=== PATIENT | female | born 1935 | race Caucasian/White ===

== ENCOUNTER 2019-09-27 07:41 | Inpatient (IN) ==
[2019-09-27] MEDS ORDERED: LIDOCAINE 1% 20 ML VIAL SQ ONE (07:42)
[2019-09-27] MEDS ORDERED: IPRATROPIUM/ALBUTEROL 3 ML AMPUL.NEB NEB ONE (08:13)
--- NOTE | 2019-09-27 08:26 | Emergency Department Note ---
SOB HPI - General Chief Complaint: Shortness of Breath/Dyspnea Stated Complaint: rib pain, SOB Time Seen by Provider: 09/27/19 08:16 Source: patient, EMS Mode of arrival: EMS Limitations: no limitations - History of Present Illness 84 -year-old female presenting to the emergency department the chief complaint of shortness of breath progressing over the evening. On more detailed history patient has been having shortness of breath over at least 4 to 5 days. Patient has recently had amiodarone changed from 200-100. Patient also with slip and fall last night seen by EMS with low oxygen saturations in the 60s that were improved with a DuoNeb and position her back in bed. Patient is not really giving history of cough or fever she has had some cough but not really dramatic at this point time. Patient is noted to have past medical history significant for atrial fibrillation, CABG, HTN. Exacerbating factors are time ameliorating factors are DuoNeb's were helping initially. Time course is gradual and progressive. Pt is on Plavix, metoprolol, amiodarone - Related Data Home Medications Medication Instructions Recorded Confirmed Calcium Citrate/Vitamin D3 1 tab PO DAILY 07/06/19 09/27/19 [Calcium Citrate - Vit D Tablet] Chromium Picolinate 1,000 mcg PO DAILY@1200 07/06/19 09/27/19 Ferrous Sulfate 325 mg PO BID 07/06/19 09/27/19 Fish Oil/Dha/Epa [Fish Oil 1,200 1 cap PO DAILY@1200 07/06/19 09/27/19 mg Fish Oil] Hydrochlorothiazide [Oretic] 12.5 mg PO DAILY 07/06/19 07/20/19 Levothyroxine [Synthroid] 100 mcg PO ACB 07/06/19 09/27/19 Magnesium Oxide [Magnesium] 400 mg PO DAILY@1200 07/06/19 09/27/19 Multivit-Min/FA/Lycopen/Lutein 1 tab PO DAILY@1200 07/06/19 09/27/19 [Centrum Silver Tablet] Potassium Gluconate 99 mg PO DAILY@1200 07/06/19 09/27/19 Ubidecarenone [Coq-10] 100 mg PO DAILY@1200 07/06/19 09/27/19 Vitamin D3 400 unit PO DAILY@1200 07/06/19 09/27/19 Vitamin E (Dl,Tocopheryl Acet) 400 unit PO DAILY@1200 07/06/19 09/27/19 [Vitamin E] Cannabidiol (Cbd) Extract 0.0625 appful PO Q4HP PRN 07/20/19 09/27/19 [Epidiolex] Amiodarone HCl [Pacerone] 100 mg PO DAILY 09/27/19 09/27/19 Atorvastatin [Lipitor] 40 mg PO DAILY 09/27/19 09/27/19 Clopidogrel Bisulfate 75 mg PO DAILY 09/27/19 09/27/19 Furosemide [Lasix] 20 mg PO DAILY 09/27/19 09/27/19 Losartan Potassium 25 mg PO DAILY 09/27/19 09/27/19 Metoprolol Tartrate [Lopressor] 25 mg PO DAILY 09/27/19 09/27/19 Potassium Chloride [Kdur] 10 meq PO DAILY 09/27/19 09/27/19 guaiFENesin [Mucinex] 1,200 mg PO DAILY 09/27/19 09/27/19 Previous Rx's Medication Instructions Recorded oxyCODONE/APAP [Percocet 5-325 mg] 5 - 10 mg PO Q4HP PRN #60 tab 07/18/19 Allergies Allergy/AdvReac Type Severity Reaction Status Date / Time naproxen Allergy Mild Hives Verified 09/27/19 07:48 morphine AdvReac Mild Itching Verified 09/27/19 07:48 Review of Systems All systems ED: reviewed and negative except as stated. Past Medical History - Past Medical History [facility] Narrative: All Active Problems Acute coronary syndrome with high troponin (Acute) Medical history: Reports: hypertension, hypothyroidism, obesity Psychiatric history: Reports: no psych history Surgical history ED: Reports: knee replacement (right) - Social History smoking status: Former smoker Alcohol use: Reports: None Drug use: Reports: none Physical Exam Vital signs evaluated and pt is noted to be hypoxic and tachycardic General: Alert, interactive, appropriate Head: Atraumatic, normocephalic Eyes: Extraocular movements intact, PERRLA Neck: Trachea midline, full range of motion Chest: Symmetrical chest wall rise, diffuse coarse breath sounds, poor air movement, tachypnea Cardiovascular: Patient with excellent perfusion to the extremities, irregularly irregular, tachycardic Abdomen: Nontender nondistended normoactive bowel sounds no masses no hepatosplenomegaly no rebound no guarding Extremities: Full range of motion joints, warm well perfused Neuro: Alert, oriented x3, cranial nerves II through XII grossly intact, normal gait Psychiatric: Normal affect normal mood Limitations: no limitations Course Vital Signs Temperature 98.9 F 09/27/19 07:41 Pulse Rate 126 H 09/27/19 07:41 Respiratory Rate 30 H 09/27/19 07:41 Blood Pressure 150/75 09/27/19 07:41 Pulse Oximetry (%) 86 L 09/27/19 07:41 Temperature 98.9 F 09/27/19 07:41 Pulse Rate 126 H 09/27/19 07:41 Respiratory Rate 28 H 09/27/19 08:28 Blood Pressure 145/80 09/27/19 08:08 Pulse Oximetry (%) 86 L 09/27/19 07:41 Shortness of Breath/Dyspnea - MDM Narrative Medical decision making narrative: After review of chart and patient history/physical exam as well as the CXR that is available labs as well as additional imaging CT chest are obtained. The differential diagnosis includes acute hypoxic respiratory failure, COPD exacerbation, pneumonia, sepsis, pulmonary edema, pneumothorax, metabolic acidosis, acute respiratory distress syndrome, panic attack, airflow obstruction, restrictive lung disease, aspiration, congestive heart failure, hypercapnia, influenza, bronchitis, upper respiratory infection, pulmonary embolism, cardiac tamponade, valvular obstruction, IN/ACS, and arrhythmia. In my medical opinion this patient has dyspnea that reasonably does require admission to the hospital. Pt seen at time of shift change and oncoming physician is advi sed of findings and assumes care. - Lab Data Result diagrams: 09/27/19 07:56 09/27/19 07:56 - EKG Data EKG attestation: Yes I reviewed and interpreted this EKG. EKG results narrative: EKG: Rate: 131, TN: n/a, rhythm: atrial fibrillation RVR, patient without ST elevations to suggest STEMI, patient without concerning T wave inversions or other findings to suggest NSTEMI Disposition Pt seen by MANAGER RENTAL/PA only: No Clinical Impression: Hypoxia, Atrial fibrillation with RVR, Acute and chronic respiratory failure with hypoxia Disposition: Still a Patient Condition: Fair Referrals: Homa Payton MD [Primary Care Provider] -
--- NOTE | 2019-09-27 08:34 | XRay Report ---
INDICATION: Dyspnea TECHNIQUE: AP chest x-ray,portable semiupright COMPARISON: Previous chest x-rays dated 08/02/2019, 08/01/2019 FINDINGS:Previous median sternotomy. There are surgical clips in the right axilla. There is cardiomegaly. Pulmonary vascularity is prominent. There are bilateral, bibasilar infiltrates and bilateral pleural effusions. Left pleural effusion appears larger than the right. Findings are most consistent with congestive heart failure. Bibasilar pneumonia is possible. IMPRESSION: 1. Findings consistent with congestive heart failure 2. Bibasilar pneumonia is possible Interpreted and Authenticated by: Freddie Mcdermott 09/27/19
[2019-09-27 08:44] LABS: Basophils # (Auto) 0 K/mcL (0.0-0.3); Basophils % (Auto) 0.2 % (0.0-2.0); Eosinophils # (Auto) 0 K/mcL (0.0-0.7); Eosinophils % (Auto) 0 % (0.0-7.0); Granulocytes % (Auto) 70.4 % (38.0-78.0); Hematocrit 34.5 % (36.0-48.0); Hemoglobin 11.3 g/dL (12.0-15.0); Lymphocytes # (Auto) 1.1 K/mcL (1.5-4.8); Lymphocytes % (Auto) 14.1 % (15.5-49.0); Mean Cell Volume 90.3 fL (80.0-100.0); Mean Corpuscular HGB Conc 32.8 g/dL (31.0-36.0); Mean Platelet Volume 7.4 fL (7.4-10.4); Monocytes # (Auto) 1.2 K/mcL (0.1-0.9); Monocytes % (Auto) 15.3 % (1.0-12.0); Platelet Count 189 K/mcL (140-440); RBC 3.82 M/mcL (4.00-5.20); Red Cell Distribution Width 20.1 % (11.5-14.5); WBC 7.9 K/mcL (4.5-11.0)
[2019-09-27 09:15] LABS: ALT/SGPT 15 U/l (0-40); AST/SGOT 17 U/l (0-37); Albumin 4.4 gm/dL (3.2-5.2); Albumin/Globulin Ratio 1.6 (1.0-2.3); Alkaline Phosphatase 91 U/L (39-117); Bilirubin,Total 1.2 mg/dL (0.0-1.0); Blood Urea Nitrogen 19 mg/dl (8-23); Calcium 10.1 mg/dl (8.6-10.4); Carbon Dioxide 30 mmol/L (22-30); Chloride 95 mmol/L (96-108); Globulin 2.8 gm/dL (2.2-3.7); Glomerular Filtration Rate 69; Glucose 114 mg/dL (70-105)
--- NOTE | 2019-09-27 09:43 | Cat Scan Report ---
CLINICAL INFORMATION: History of coronary artery bypass procedure. Dyspnea. TECHNIQUE: Axial postcontrast enhanced images of the chest. Sagittal and coronal reformatted images. Axial MIP reformatted images COMPARISON: Previous chest x-ray dated 09/27/2019 FINDINGS: Previous median sternotomy. There is severe coronary artery calcification. Probable previous coronary artery bypass procedure. There is cardiomegaly. There is no pericardial effusion. There are bilateral pleural effusions, right larger than left. There is bilateral lower lobe parenchymal density most consistent with volume loss. Chest x-ray demonstrated prominent vascularity and probable interstitial pulmonary edema. Appearance is most consistent with congestive heart failure. Bilateral lower lobe pneumonia is not excluded based only upon the radiographic images. No pathologic hilar or mediastinal adenopathy. No axillary adenopathy. Upper abdomen is negative. Multilevel degenerative disc disease in the thoracic spine. No rib fracture. No lytic lesion. IMPRESSION: 1. Previous median sternotomy and probable coronary artery bypass procedure 2. Severe calcified coronary artery disease. Mild cardiomegaly 3. Bilateral pleural effusions, right larger than left. Bilateral lower lobe volume loss. Appearance is consistent with congestive heart failure Interpreted and Authenticated by: Freddie Mcdermott 09/27/19
[2019-09-27 09:46] LABS: Appearance,Urine CLOUDY; Bacteria,Urine MOD /hpf (0); Bilirubin,Urine NEG (NEG); Color,Urine STRAW; Culture Indicated,Urine NO; Glucose,Urine (UA) NEGATIVE (NEG); Ketones,Urine NEG (NEG); Leukocyte Esterase,Urine NEG /uL (NEG); Mucus,Urine MANY /hpf (0); Nitrate,Urine NEG (NEG); Other Casts,Urine MANY /lpf (0); Protein,Urine 30 mg/dL (NEG); Specific Gravity,Urine 1.023 (1.000-1.035); Urine Blood NEG mg/dL (<0.03); Urine Hyaline Cast 38 /lpf (0-2); Urine RBC 1 /hpf (0-1); Urine Squamous Epithelial Cell 29 /hpf (0-4); Urine WBC 9 /hpf (0-4)
[2019-09-27] MEDS ORDERED: FUROSEMIDE 100 MG/10 ML VIAL IV ONE (10:19)
[2019-09-27] MEDS ORDERED: METOPROLOL TARTRATE 50 MG TABLET PO ONE (10:24)
--- NOTE | 2019-09-27 10:28 | Emergency Department Note ---
SOB HPI - General Chief Complaint: Shortness of Breath/Dyspnea Stated Complaint: rib pain, SOB Time Seen by Provider: 09/27/19 08:16 Source: patient, EMS Mode of arrival: EMS Limitations: no limitations - History of Present Illness 84-year-old female comes in with shortness of breath and hypoxia requiring now 5 L of oxygen. She is not on oxygen at home. Patient was initially seen by Dr. Griffin. I reviewed his note. I assume full care at shift change - Related Data Home Medications Medication Instructions Recorded Confirmed Calcium Citrate/Vitamin D3 1 tab PO DAILY 07/06/19 09/27/19 [Calcium Citrate - Vit D Tablet] Chromium Picolinate 1,000 mcg PO DAILY@1200 07/06/19 09/27/19 Ferrous Sulfate 325 mg PO BID 07/06/19 09/27/19 Fish Oil/Dha/Epa [Fish Oil 1,200 1 cap PO DAILY@1200 07/06/19 09/27/19 mg Fish Oil] Levothyroxine [Synthroid] 100 mcg PO ACB 07/06/19 09/27/19 Magnesium Oxide [Magnesium] 400 mg PO DAILY@1200 07/06/19 09/27/19 Multivit-Min/FA/Lycopen/Lutein 1 tab PO DAILY@1200 07/06/19 09/27/19 [Centrum Silver Tablet] Potassium Gluconate 99 mg PO DAILY@1200 07/06/19 09/27/19 Ubidecarenone [Coq-10] 100 mg PO DAILY@1200 07/06/19 09/27/19 Vitamin D3 400 unit PO DAILY@1200 07/06/19 09/27/19 Vitamin E (Dl,Tocopheryl Acet) 400 unit PO DAILY@1200 07/06/19 09/27/19 [Vitamin E] Cannabidiol (Cbd) Extract 0.0625 appful PO Q4HP PRN 07/20/19 09/27/19 [Epidiolex] Amiodarone HCl [Pacerone] 100 mg PO DAILY 09/27/19 09/27/19 Atorvastatin [Lipitor] 40 mg PO DAILY 09/27/19 09/27/19 Clopidogrel Bisulfate 75 mg PO DAILY 09/27/19 09/27/19 Furosemide [Lasix] 20 mg PO DAILY 09/27/19 09/27/19 Losartan Potassium 25 mg PO DAILY 09/27/19 09/27/19 Metoprolol Tartrate [Lopressor] 25 mg PO DAILY 09/27/19 09/27/19 Potassium Chloride [Kdur] 10 meq PO DAILY 09/27/19 09/27/19 guaiFENesin [Mucinex] 1,200 mg PO DAILY 09/27/19 09/27/19 Allergies Allergy/AdvReac Type Severity Reaction Status Date / Time naproxen Allergy Mild Hives Verified 09/27/19 14:58 morphine AdvReac Mild Itching Verified 09/27/19 14:58 Past Medical History - Past Medical History Medical history: Reports: hypertension, hypothyroidism, obesity Psychiatric history: Reports: no psych history Surgical history ED: Reports: knee replacement (right) - Social History smoking status: Former smoker Alcohol use: Reports: None Drug use: Reports: none Physical Exam Limitations: no limitations Course Vital Signs Temperature 98.9 F 09/27/19 07:41 Pulse Rate 126 H 09/27/19 07:41 Respiratory Rate 30 H 09/27/19 07:41 Blood Pressure 150/75 09/27/19 07:41 Pulse Oximetry (%) 86 L 09/27/19 07:41 Temperature 98.0 F 09/28/19 05:54 Pulse Rate 69 09/27/19 13:00 Respiratory Rate 19 09/28/19 05:54 Blood Pressure 109/52 09/28/19 05:01 Pulse Oximetry (%) 97 09/28/19 05:54 Shortness of Breath/Dyspnea - Lab Data Lab results reviewed: Yes I reviewed the patient's lab results. Result diagrams: 09/28/19 04:00 09/28/19 04:00 Lab Results 09/27/19 09/27/19 09/27/19 Range/Units 07:56 07:56 07:56 WBC 7.9 (4.5-11.0) K/mcL RBC 3.82 L (4.00-5.20) M/mcL Hgb 11.3 L (12.0-15.0) g/dL Hct 34.5 L (36.0-48.0) % MCV 90.3 (80.0-100.0) fL MCH 29.6 (26.0-34.0) pg MCHC 32.8 (31.0-36.0) g/dL RDW 20.1 H (11.5-14.5) % Plt Count 189 (140-440) K/mcL MPV 7.4 (7.4-10.4) fL Gran % 70.4 (38.0-78.0) % Lymph % (Auto) 14.1 L (15.5-49.0) % [place] % (Auto) 15.3 H (1.0-12.0) % Eos % (Auto) 0 (0.0-7.0) % Baso % (Auto) 0.2 (0.0-2.0) % Gran # 5.6 (1.8-8.0) K/mcL Lymph # (Auto) 1.1 L (1.5-4.8) K/mcL [place] # (Auto) 1.2 H (0.1-0.9) K/mcL Eos # (Auto) 0 (0.0-0.7) K/mcL Baso # (Auto) 0 (0.0-0.3) K/mcL PT (11.9-14.5) sec INR (0.9-1.1) VBG Lactic Acid (0.5-2.0) mmol/L Sodium 136 (133-145) mmol/L Potassium 4.3 (3.3-5.1) mmol/L Chloride 95 L (96-108) mmol/L Carbon Dioxide 30 (22-30) mmol/L Anion Gap 11.0 (8-16) BUN 19 (8-23) mg/dl Creatinine 0.8 (0.6-1.1) mg/dl GFR Calculation 69 Glucose 114 H (70-105) mg/dL Calcium 10.1 (8.6-10.4) mg/dl Total Bilirubin 1.2 H (0.0-1.0) mg/dL AST 17 (0-37) U/l ALT 15 (0-40) U/l Alkaline Phosphatase 91 (39-117) U/L Lactate Dehydrogenase (94-250) U/L Troponin T < 0.01 (0-0.03) ng/ml NT-Pro-B Natriuret Pep (0-450) pg/ml Total Protein 7.2 (5.9-8.4) gm/dL Albumin 4.4 (3.2-5.2) gm/dL Globulin 2.8 (2.2-3.7) gm/dL Albumin/Globulin Ratio 1.6 (1.0-2.3) Cholesterol (<200) mg/dl TSH (0.27-5.01) uIU/ml Urine Color Urine Appearance Urine pH (5.0-9.0) Ur Specific [place] (1.000-1.035) Urine Protein (NEG) mg/dL Urine Glucose (UA) (NEG) mg/dL Urine Ketones (NEG) mg/dL Urine Occult Blood (<0.03) mg/dL Urine Nitrate (NEG) Urine Bilirubin (NEG) mg/dL Urine Urobilinogen (NEG) mg/dL Ur Leukocyte Esterase (NEG) /uL Urine RBC (0-1) /hpf Urine WBC (0-4) /hpf Ur Squamous Epith Cells (0-4) /hpf Urine Bacteria (0) /hpf Hyaline Casts (0-2) /lpf Other Casts (0) /lpf Urine Mucus (0) /hpf Ur Culture Indicated? Fluid pH Fluid Total Protein Fluid LDH Fluid Cholesterol mg/dL Fluid Triglycerides mg/dL Pleural Fluid Source Pleural Color Pleural Appearance Pleural RBC /cumm Pleural Hematocrit % Pleural Tot Cell Ct Pleural Nuc Cells /cumm Pleural Neutrophils % Pleural Lymphocytes % Pleural Monocytes % Pleural Plasma Cells Pleural Macrophages % Pleural Mesothelial % Pleural Diff Comment Pleural Glucose mg/dL Pleural Amylase U/L 09/27/19 09/27/19 09/27/19 Range/Units 07:56 07:56 09:07 WBC (4.5-11.0) K/mcL RBC (4.00-5.20) M/mcL Hgb (12.0-15.0) g/dL Hct (36.0-48.0) % MCV (80.0-100.0) fL MCH (26.0-34.0) pg MCHC (31.0-36.0) g/dL RDW (11.5-14.5) % Plt Count (140-440) K/mcL MPV (7.4-10.4) fL Gran % (38.0-78.0) % Lymph % (Auto) (15.5-49.0) % [place] % (Auto) (1.0-12.0) % Eos % (Auto) (0.0-7.0) % Baso % (Auto) (0.0-2.0) % Gran # (1.8-8.0) K/mcL Lymph # (Auto) (1.5-4.8) K/mcL [place] # (Auto) (0.1-0.9) K/mcL Eos # (Auto) (0.0-0.7) K/mcL Baso # (Auto) (0.0-0.3) K/mcL PT (11.9-14.5) sec INR (0.9-1.1) VBG Lactic Acid (0.5-2.0) mmol/L Sodium (133-145) mmol/L Potassium (3.3-5.1) mmol/L Chloride (96-108) mmol/L Carbon Dioxide (22-30) mmol/L Anion Gap (8-16) BUN (8-23) mg/dl Creatinine (0.6-1.1) mg/dl GFR Calculation Glucose (70-105) mg/dL Calcium (8.6-10.4) mg/dl Total Bilirubin (0.0-1.0) mg/dL AST (0-37) U/l ALT (0-40) U/l Alkaline Phosphatase (39-117) U/L Lactate Dehydrogenase (94-250) U/L Troponin T (0-0.03) ng/ml NT-Pro-B Natriuret Pep 942.9 H (0-450) pg/ml Total Protein (5.9-8.4) gm/dL Albumin (3.2-5.2) gm/dL Globulin (2.2-3.7) gm/dL Albumin/Globulin Ratio (1.0-2.3) Cholesterol (<200) mg/dl TSH 2.99 (0.27-5.01) uIU/ml Urine Color Straw Urine Appearance Cloudy Urine pH 5.0 (5.0-9.0) Ur Specific [place] 1.023 (1.000-1.035) Urine Protein 30 A (NEG) mg/dL Urine Glucose (UA) Negative (NEG) mg/dL Urine Ketones Neg (NEG) mg/dL Urine Occult Blood Neg (<0.03) mg/dL Urine Nitrate Neg (NEG) Urine Bilirubin Neg (NEG) mg/dL Urine Urobilinogen 2.0 A (NEG) mg/dL Ur Leukocyte Esterase Neg (NEG) /uL Urine RBC 1 (0-1) /hpf Urine WBC 9 H (0-4) /hpf Ur Squamous Epith Cells 29 H (0-4) /hpf Urine Bacteria Mod A (0) /hpf Hyaline Casts 38 H (0-2) /lpf Other Casts Many A (0) /lpf Urine Mucus Many A (0) /hpf Ur Culture Indicated? No Fluid pH Fluid Total Protein Fluid LDH Fluid Cholesterol mg/dL Fluid Triglycerides mg/dL Pleural Fluid Source Pleural Color Pleural Appearance Pleural RBC /cumm Pleural Hematocrit % Pleural Tot Cell Ct Pleural Nuc Cells /cumm Pleural Neutrophils % Pleural Lymphocytes % Pleural Monocytes % Pleural Plasma Cells Pleural Macrophages % Pleural Mesothelial % Pleural Diff Comment Pleural Glucose mg/dL Pleural Amylase U/L 09/27/19 09/27/19 09/27/19 Range/Units 09:22 09:31 09:31 WBC (4.5-11.0) K/mcL RBC (4.00-5.20) M/mcL Hgb (12.0-15.0) g/dL Hct (36.0-48.0) % MCV (80.0-100.0) fL MCH (26.0-34.0) pg MCHC (31.0-36.0) g/dL RDW (11.5-14.5) % Plt Count (140-440) K/mcL MPV (7.4-10.4) fL Gran % (38.0-78.0) % Lymph % (Auto) (15.5-49.0) % [place] % (Auto) (1.0-12.0) % Eos % (Auto) (0.0-7.0) % Baso % (Auto) (0.0-2.0) % Gran # (1.8-8.0) K/mcL Lymph # (Auto) (1.5-4.8) K/mcL [place] # (Auto) (0.1-0.9) K/mcL Eos # (Auto) (0.0-0.7) K/mcL Baso # (Auto) (0.0-0.3) K/mcL PT 14.3 (11.9-14.5) sec INR 1.1 (0.9-1.1) VBG Lactic Acid 1.1 (0.5-2.0) mmol/L Sodium (133-145) mmol/L Potassium (3.3-5.1) mmol/L Chloride (96-108) mmol/L Carbon Dioxide (22-30) mmol/L Anion Gap (8-16) BUN (8-23) mg/dl Creatinine (0.6-1.1) mg/dl GFR Calculation Glucose (70-105) mg/dL Calcium (8.6-10.4) mg/dl Total Bilirubin (0.0-1.0) mg/dL AST (0-37) U/l ALT (0-40) U/l Alkaline Phosphatase (39-117) U/L Lactate Dehydrogenase 173 (94-250) U/L Troponin T (0-0.03) ng/ml NT-Pro-B Natriuret Pep (0-450) pg/ml Total Protein 7.2 (5.9-8.4) gm/dL Albumin (3.2-5.2) gm/dL Globulin (2.2-3.7) gm/dL Albumin/Globulin Ratio (1.0-2.3) Cholesterol 123 (<200) mg/dl TSH (0.27-5.01) uIU/ml Urine Color Urine Appearance Urine pH (5.0-9.0) Ur Specific [place] (1.000-1.035) Urine Protein (NEG) mg/dL Urine Glucose (UA) (NEG) mg/dL Urine Ketones (NEG) mg/dL Urine Occult Blood (<0.03) mg/dL Urine Nitrate (NEG) Urine Bilirubin (NEG) mg/dL Urine Urobilinogen (NEG) mg/dL Ur Leukocyte Esterase (NEG) /uL Urine RBC (0-1) /hpf Urine WBC (0-4) /hpf Ur Squamous Epith Cells (0-4) /hpf Urine Bacteria (0) /hpf Hyaline Casts (0-2) /lpf Other Casts (0) /lpf Urine Mucus (0) /hpf Ur Culture Indicated? Fluid pH Fluid Total Protein Fluid LDH Fluid Cholesterol mg/dL Fluid Triglycerides mg/dL Pleural Fluid Source Pleural Color Pleural Appearance Pleural RBC /cumm Pleural Hematocrit % Pleural Tot Cell Ct Pleural Nuc Cells /cumm Pleural Neutrophils % Pleural Lymphocytes % Pleural Monocytes % Pleural Plasma Cells Pleural Macrophages % Pleural Mesothelial % Pleural Diff Comment Pleural Glucose mg/dL Pleural Amylase U/L 09/27/19 09/27/19 09/27/19 Range/Units 11:24 12:17 12:17 WBC (4.5-11.0) K/mcL RBC (4.00-5.20) M/mcL Hgb (12.0-15.0) g/dL Hct (36.0-48.0) % MCV (80.0-100.0) fL MCH (26.0-34.0) pg MCHC (31.0-36.0) g/dL RDW (11.5-14.5) % Plt Count (140-440) K/mcL MPV (7.4-10.4) fL Gran % (38.0-78.0) % Lymph % (Auto) (15.5-49.0) % [place] % (Auto) (1.0-12.0) % Eos % (Auto) (0.0-7.0) % Baso % (Auto) (0.0-2.0) % Gran # (1.8-8.0) K/mcL Lymph # (Auto) (1.5-4.8) K/mcL [place] # (Auto) (0.1-0.9) K/mcL Eos # (Auto) (0.0-0.7) K/mcL Baso # (Auto) (0.0-0.3) K/mcL PT (11.9-14.5) sec INR (0.9-1.1) VBG Lactic Acid (0.5-2.0) mmol/L Sodium (133-145) mmol/L Potassium (3.3-5.1) mmol/L Chloride (96-108) mmol/L Carbon Dioxide (22-30) mmol/L Anion Gap (8-16) BUN (8-23) mg/dl Creatinine (0.6-1.1) mg/dl GFR Calculation Glucose (70-105) mg/dL Calcium (8.6-10.4) mg/dl Total Bilirubin (0.0-1.0) mg/dL AST (0-37) U/l ALT (0-40) U/l Alkaline Phosphatase (39-117) U/L Lactate Dehydrogenase (94-250) U/L Troponin T (0-0.03) ng/ml NT-Pro-B Natriuret Pep (0-450) pg/ml Total Protein (5.9-8.4) gm/dL Albumin (3.2-5.2) gm/dL Globulin (2.2-3.7) gm/dL Albumin/Globulin Ratio (1.0-2.3) Cholesterol (<200) mg/dl TSH (0.27-5.01) uIU/ml Urine Color Yellow Urine Appearance Hazy Urine pH 5.0 (5.0-9.0) Ur Specific [place] 1.019 (1.000-1.035) Urine Protein 30 A (NEG) mg/dL Urine Glucose (UA) Negative (NEG) mg/dL Urine Ketones Neg (NEG) mg/dL Urine Occult Blood Neg (<0.03) mg/dL Urine Nitrate Neg (NEG) Urine Bilirubin Neg (NEG) mg/dL Urine Urobilinogen 2.0 A (NEG) mg/dL Ur Leukocyte Esterase Neg (NEG) /uL Urine RBC 0 (0-1) /hpf Urine WBC 5 H (0-4) /hpf Ur Squamous Epith Cells 1 (0-4) /hpf Urine Bacteria Few A (0) /hpf Hyaline Casts 42 H (0-2) /lpf Other Casts (0) /lpf Urine Mucus Many A (0) /hpf Ur Culture Indicated? Yes Fluid pH 7.38 Fluid Total Protein TNP Fluid LDH TNP Fluid Cholesterol 87 mg/dL Fluid Triglycerides 43 mg/dL Pleural Fluid Source Pleural Pleural Color Red Pleural Appearance Bloody Pleural RBC > 613900 /cumm Pleural Hematocrit % Pleural Tot Cell Ct 100 Pleural Nuc Cells 14337 /cumm Pleural Neutrophils 53 % Pleural Lymphocytes 16 % Pleural Monocytes 12 % Pleural Plasma Cells Not Reportable Pleural Macrophages 16 % Pleural Mesothelial 3 % Pleural Diff Comment Not Reportable Pleural Glucose 104 mg/dL Pleural Amylase 48 U/L 09/27/19 Range/Units 12:18 WBC (4.5-11.0) K/mcL RBC (4.00-5.20) M/mcL Hgb (12.0-15.0) g/dL Hct (36.0-48.0) % MCV (80.0-100.0) fL MCH (26.0-34.0) pg MCHC (31.0-36.0) g/dL RDW (11.5-14.5) % Plt Count (140-440) K/mcL MPV (7.4-10.4) fL Gran % (38.0-78.0) % Lymph % (Auto) (15.5-49.0) % [place] % (Auto) (1.0-12.0) % Eos % (Auto) (0.0-7.0) % Baso % (Auto) (0.0-2.0) % Gran # (1.8-8.0) K/mcL Lymph # (Auto) (1.5-4.8) K/mcL [place] # (Auto) (0.1-0.9) K/mcL Eos # (Auto) (0.0-0.7) K/mcL Baso # (Auto) (0.0-0.3) K/mcL PT (11.9-14.5) sec INR (0.9-1.1) VBG Lactic Acid (0.5-2.0) mmol/L Sodium (133-145) mmol/L Potassium (3.3-5.1) mmol/L Chloride (96-108) mmol/L Carbon Dioxide (22-30) mmol/L Anion Gap (8-16) BUN (8-23) mg/dl Creatinine (0.6-1.1) mg/dl GFR Calculation Glucose (70-105) mg/dL Calcium (8.6-10.4) mg/dl Total Bilirubin (0.0-1.0) mg/dL AST (0-37) U/l ALT (0-40) U/l Alkaline Phosphatase (39-117) U/L Lactate Dehydrogenase (94-250) U/L Troponin T (0-0.03) ng/ml NT-Pro-B Natriuret Pep (0-450) pg/ml Total Protein (5.9-8.4) gm/dL Albumin (3.2-5.2) gm/dL Globulin (2.2-3.7) gm/dL Albumin/Globulin Ratio (1.0-2.3) Cholesterol (<200) mg/dl TSH (0.27-5.01) uIU/ml Urine Color Urine Appearance Urine pH (5.0-9.0) Ur Specific [place] (1.000-1.035) Urine Protein (NEG) mg/dL Urine Glucose (UA) (NEG) mg/dL Urine Ketones (NEG) mg/dL Urine Occult Blood (<0.03) mg/dL Urine Nitrate (NEG) Urine Bilirubin (NEG) mg/dL Urine Urobilinogen (NEG) mg/dL Ur Leukocyte Esterase (NEG) /uL Urine RBC (0-1) /hpf Urine WBC (0-4) /hpf Ur Squamous Epith Cells (0-4) /hpf Urine Bacteria (0) /hpf Hyaline Casts (0-2) /lpf Other Casts (0) /lpf Urine Mucus (0) /hpf Ur Culture Indicated? Fluid pH Fluid Total Protein Fluid LDH Fluid Cholesterol mg/dL Fluid Triglycerides mg/dL Pleural Fluid Source Pleural Color Pleural Appearance Pleural RBC /cumm Pleural Hematocrit 17.0 % Pleural Tot Cell Ct Pleural Nuc Cells /cumm Pleural Neutrophils % Pleural Lymphocytes % Pleural Monocytes % Pleural Plasma Cells Pleural Macrophages % Pleural Mesothelial % Pleural Diff Comment Pleural Glucose mg/dL Pleural Amylase U/L Arterial blood gas shows pH 7.29 PCO2 75 PO2 of 60On 3 L nasal cannula - Radiology Data Radiology results reviewed: Yes I reviewed the patient's radiology results. Chest x-ray shows bilateral pleural effusions right worse than left. CT scan of the lungs shows bilateral pleural effusions consistent with CHF - EKG Data EKG attestation: Yes I reviewed and interpreted this EKG., Yes There are no EKG findings of acute coronary syndrome, Yes This EKG will be read by diamond assorter EKG results narrative: EKG shows rate of 131 atrial fibrillation with rapid ventricular response Disposition Pt seen by [facility] REPRESENTATIVE/[facility] only: No Clinical Impression: Atrial fibrillation with RVR, Acute respiratory failure with hypoxia and hypercapnia, Pleural effusion Congestive heart failure Qualifiers: Heart failure type: unspecified Heart failure chronicity: acute on chronic Qualified Code(s): I50.9 - Heart failure, unspecified Summary: Ordered Curry and furosemide for CHF. Continue oxygen. Start BiPAP. Metoprolol for A. fib with RVR-rate is in the 120s right now I discussed the case with Dr. Deangelo Matos, diamond assorter at [facility]. He advised me to have patient get a thoracentesis for the pleural effusions, treat the atrial fibrillation and consider starting anticoagulation. He felt like we could handle this here, but if things did not improve with above-noted measures they were willing to take the patient up there. Patient will require admission-we discussed with hospitalist Dr. Narvaez. He agreed to accept patient will come down and see the patient. However shift c mary carmen came for him and his relief, Dr. Sears admitted the patient Disposition: Xfer As Inpt ([facility]) Condition: Fair
--- NOTE | 2019-09-27 11:43 | Internal Med History&Physical ---
Medical - H&P: HPI Patient information: Note initiated : 09/27/19 at 11:39 am Service Date, if different from initiated Date: [] Patient: Emily Gay a 84 y/o F admitted on for Rib Pain, SOB. Chief Complaint: [] History of present illness: Ms. Gay is a 84 year old F Who presents the ED with shortness of breath. History obtained from patient as well as her son. Sounds like her most recent medical issues started when she had a right knee replacement and then a week later had a non-STEMI. Subsequently had a a coronary artery bypass graft x2 vessel at [place] and was hospitalized for several weeks. She has been doing okay until about 5 days ago her son states that he thought she caught a "bug". More labored since then. Yesterday she became weak and fell over and EMS arrived and found to be hypoxic gave her some breathing treatments and her oxygen seemed to improve. Today however she was very weak and could not get out of bed and appeared more short of breath and thus was brought in the ED. In the ED she was found to be CHF with a large effusions worse on the right and A. fib RVR. She was hypoxic and hypercapnic. Case discussed with her financial aid counselor in [facility] who felt it was likely c omplication from surgery but felt patient did not need to be transferred. Just recommended thoracentesis diuresis and starting on anticoagulation. I saw her in the ED her rhythm had converted to sinus. She is on BiPAP and tolerating it well. She complains of the shortness of breath and she is also had a cough of clear sputum with clear sinus drainage. Review of Systems: Positives as above. Denies headache/fever/chills/nausea/vomiting/chest or abdominal pain//diarrhea. Many 10 point review of system reviewed negative Medical - H&P: PMH Medical history: Past medical history: Hypertension hyperlipidemia paroxysmal atrial ablation coronary artery disease with CABG x2 vessel June hypothyroidism breast cancer Surgical history: Coronary artery bypass graft x2 vessel Bilateral knee arthroplasty most recent one right and June tubal ligation next mastectomy family history: Parents history is unknown Social: Patient quit smoking 1982 drinks alcohol rarely ambulates with a walker Lives with her son Medical - H&P: Meds Home Medications Medication Instructions Recorded Confirmed Type Calcium Citrate/Vitamin D3 1 tab PO DAILY 07/06/19 09/27/19 History [Calcium Citrate - Vit D Tablet] Chromium Picolinate 1,000 mcg PO DAILY@1200 07/06/19 09/27/19 History Ferrous Sulfate 325 mg PO BID 07/06/19 09/27/19 History Fish Oil/Dha/Epa [Fish Oil 1,200 1 cap PO DAILY@1200 07/06/19 09/27/19 History mg Fish Oil] Hydrochlorothiazide [Oretic] 12.5 mg PO DAILY 07/06/19 07/20/19 History Levothyroxine [Synthroid] 100 mcg PO ACB 07/06/19 09/27/19 History Magnesium Oxide [Magnesium] 400 mg PO DAILY@1200 07/06/19 09/27/19 History Multivit-Min/FA/Lycopen/Lutein 1 tab PO DAILY@119907/06/19 09/27/19 History [Centrum Silver Tablet] Potassium Gluconate 99 mg PO DAILY@1200 07/06/19 09/27/19 History Ubidecarenone [Coq-10] 100 mg PO DAILY@119907/06/19 09/27/19 History Vitamin D3 400 unit PO DAILY@119907/06/19 09/27/19 History Vitamin E (Dl,Tocopheryl Acet) 400 unit PO DAILY@119907/06/19 09/27/19 History [Vitamin E] oxyCODONE/APAP [Percocet 5-325 mg] 5 - 10 mg PO Q4HP PRN #60 tab 07/18/19 Rx Cannabidiol (Cbd) Extract 0.0625 appful PO Q4HP PRN 07/20/19 09/27/19 History [Epidiolex] Amiodarone HCl [Pacerone] 100 mg PO DAILY 09/27/19 09/27/19 History Atorvastatin [Lipitor] 40 mg PO DAILY 09/27/19 09/27/19 History Clopidogrel Bisulfate 75 mg PO DAILY 09/27/19 09/27/19 History Furosemide [Lasix] 20 mg PO DAILY 09/27/19 09/27/19 History Losartan Potassium 25 mg PO DAILY 09/27/19 09/27/19 History Metoprolol Tartrate [Lopressor] 25 mg PO DAILY 09/27/19 09/27/19 History Potassium Chloride [Kdur] 10 meq PO DAILY 09/27/19 09/27/19 History guaiFENesin [Mucinex] 1,200 mg PO DAILY 09/27/19 09/27/19 History Allergies Allergy/AdvReac Type Severity Reaction Status Date / Time naproxen Allergy Mild Hives Verified 09/27/19 07:48 morphine AdvReac Mild Itching Verified 09/27/19 07:48 Medical - H&P: Exam - Constitutional Vitals: Temp Pulse Resp BP Pulse Ox 98.9 F 78 27 H 103/50 100 09/27/19 07:41 09/27/19 11:30 09/27/19 11:30 09/27/19 11:30 09/27/19 11:30 Exam: General: Alert, Awake, No acute Distress, obese Eyes/N/T: EOMI, PEERL, Head/Neck: neck supple, normocephalic atraumatic CV: Regular now, No murmurs, normal s1/s2 Pulm: severly diminished b/l, no wheezing Abd: soft, nontender, +BS x4 Ext: no clubbing/cyanosis, b/l LE 1+ edema Neuro: Alert, no focal deficits, moves all extremities, CN 2-12 grossly intact, symmetrical strength b/l upper/lower, sensations intact b/l upper/lower Skin: warm/dry Medical - H&P: Reslt - Labs CBC & Chem 7: 09/27/19 07:56 09/27/19 07:56 Labs: Short CBC 09/27/19 Range/Units 07:56 WBC 7.9 (4.5-11.0) K/mcL Hgb 11.3 L (12.0-15.0) g/dL Hct 34.5 L (36.0-48.0) % Plt Count 189 (140-440) K/mcL BMP 09/27/19 07:56 Sodium 136 Potassium 4.3 Chloride 95 L Carbon Dioxide 30 BUN 19 Creatinine 0.8 Glucose 114 H Calcium 10.1 Cardiac Enzymes 09/27/19 Range/Units 07:56 Troponin T < 0.01 (0-0.03) ng/ml Liver Function 09/27/19 Range/Units 07:56 Total Bilirubin 1.2 H (0.0-1.0) mg/dL AST 17 (0-37) U/l ALT 15 (0-40) U/l Alkaline Phosphatase 91 (39-117) U/L Albumin 4.4 (3.2-5.2) gm/dL Urine 09/27/19 Range/Units 09:07 Urine Color Straw Urine Appearance Cloudy Urine pH 5.0 (5.0-9.0) Ur Specific [place] 1.023 (1.000-1.035) Urine Protein 30 A (NEG) mg/dL Urine Glucose (UA) Negative (NEG) mg/dL - Impressions CT chest with pulmonary edema and lateral fusion with quite large in the right Medical - H&P: A/P - Narrative A/P Narrative: A: *Acute on chronic diastolic CHF with pulmonary edema Pleural effusions with large on the right: likely complication of recent CABG -Case discussed with financial aid counselor at [place] who felt complication from recent CABG but recommended keeping and doing thora and diuresis and starting anticoagulation. *Acute hypoxic/hypercapnic respiratory failure: 2/2 above -on bipap *CAD with recent CABG x2: at [place] *PAF with RVR: Converted in ED *HTN/HLD: *Hypothyroidism: P: -IV diuresis, monitor i/o's -BiPAP wean -echo pending -Thoracentesis -Case was discussed with [place] financial aid counselor who recommended thoracentesis and starting anticoagulation -Follow-up ABG -cont home plavix/statin -cont home ARB/BB, Amio -clarify meds in system to start appropriate meds - -pt/ot -ppx: tasha full code
[2019-09-27 12:07] LABS: Appearance,Urine HAZY; Bacteria,Urine FEW /hpf (0); Bilirubin,Urine NEG (NEG); Color,Urine YELLOW; Culture Indicated,Urine YES; Glucose,Urine (UA) NEGATIVE (NEG); Ketones,Urine NEG (NEG); Leukocyte Esterase,Urine NEG /uL (NEG); Mucus,Urine MANY /hpf (0); Nitrate,Urine NEG (NEG); Protein,Urine 30 mg/dL (NEG); Specific Gravity,Urine 1.019 (1.000-1.035); Urine Blood NEG mg/dL (<0.03); Urine Hyaline Cast 42 /lpf (0-2); Urine RBC 0 /hpf (0-1); Urine Squamous Epithelial Cell 1 /hpf (0-4); Urine WBC 5 /hpf (0-4)
[2019-09-27 12:13] LABS: INR 1.1 (0.9-1.1); Prothrombin Time 14.3 sec (11.9-14.5)
--- NOTE | 2019-09-27 12:24 | XRay Report ---
CLINICAL INFORMATION: Status post right thoracentesis. 1.1 L of bloody fluid was removed TECHNIQUE: Upright AP chest x-ray COMPARISON: Prethoracentesis chest x-ray dated 09/27/2019 FINDINGS: There is no postthoracentesis pneumothorax. Right pleural effusion is markedly decreased. There is mild right basilar atelectasis or infiltrate. Left hemithorax is unchanged IMPRESSION: 1. No pneumothorax, status post right thoracentesis 2. Mild right basilar atelectasis or infiltrate Interpreted and Authenticated by: Freddie Mcdermott 09/27/19
--- NOTE | 2019-09-27 12:26 | Ultrasound Report ---
CLINICAL INFORMATION: Right pleural effusion TECHNIQUE: Informed consent was obtained. Right pleural effusion was localized with ultrasound. Routine ChloraPrep skin cleansing. 1% lidocaine injected subcutaneously and deep. 1.1 L of grossly bloody fluid was removed. Postthoracentesis chest x-ray demonstrates no pneumothorax. IMPRESSION: 1. Ultrasound-guided right thoracentesis 2. 1.1 L grossly bloody fluid removed. Interpreted and Authenticated by: Freddie Mcdermott 09/27/19
[2019-09-27] MEDS ORDERED: POTASSIUM GLUCONATE 99 MG PO SCH (13:05)
[2019-09-27] MEDS ORDERED: POTASSIUM CHLORIDE 20 MEQ TABLET PO PRN ×2 (13:05)
[2019-09-27] MEDS ORDERED: POTASSIUM CHLORIDE 40 MEQ in DEXTROSE 5% IN WATER 500 ML IV PRN (13:05)
[2019-09-27] MEDS ORDERED: MAGNESIUM SULFATE 2 GM/50 ML BAG IV PRN (13:05)
[2019-09-27] MEDS ORDERED: IPRATROPIUM/ALBUTEROL 3 ML AMPUL.NEB NEB PRN (13:05)
[2019-09-27] MEDS ORDERED: ONDANSETRON 4 MG/2 ML VIAL IV PRN (13:05)
[2019-09-27] MEDS ORDERED: POLYETHYLENE GLYCOL 3350 17 GM PACKET PO PRN (13:05)
[2019-09-27 13:28] LABS: pH,Body Fluid 7.38
[2019-09-27 13:43] LABS: Total Protein,Pleural Fluid 4.9 gm/dL
[2019-09-27 13:43] LABS: Amylase,Pleural Fluid 48 U/L; Glucose,Pleural Fluid 104 mg/dL
[2019-09-27 13:44] LABS: Triglycerides,Body Fluid 43 mg/dL
[2019-09-27 13:58] LABS: Lymphocytes,Pleural Fluid 16 %; Macrophages,Pleural Fluid 16 %; Mesothelial,Pleural Fluid 3 %; Monocytes,Pleural Fluid 12 %; Neutrophils,Pleural Fluid 53 %
[2019-09-27 13:59] LABS: Appearance,Pleural Fluid BLOODY; Color,Pleural Fluid RED; Nucleated Cells,Pleural Fld 16200 /cumm; RBC,Pleural Fluid > 100000 /cumm
[2019-09-27] MEDS: ACETAMINOPHEN 325 MG TABLET PO PRN (14:35)
[2019-09-27] MEDS: MAGNESIUM OXIDE 400 MG TABLET PO SCH (14:35)
[2019-09-27] MEDS: 0.9 % SODIUM CHLORIDE 10 ML SYRINGE IV SCH ×2 (14:36→21:00)
[2019-09-27 14:47] LABS: ABG Methemoglobin 0.3 % (0.4-1.5); Total Hemoglobin 10.4 gm/dL (12.0-15.0); VBG Base Excess 7.9 (-2.0-2.0); VBG HCO3 34.5 mmol/L (24.0-28.0); VBG Oxygen Saturation 88.2 % (40.0-70.0); VBG PCO2 59.3 mmHg (41.0-51.0); VBG PH 7.38 U (7.32-7.42); VBG PO2 82 mmHg (25-40); VBG Total CO2 36.3 mmol/L (25.0-29.0)
[2019-09-27 14:49] LABS: Hematocrit 31.9 % (36.0-48.0); Hemoglobin 10.5 g/dL (12.0-15.0)
[2019-09-27 19:00] LABS: Hematocrit 31.3 % (36.0-48.0); Hemoglobin 10.3 g/dL (12.0-15.0)
[2019-09-27] MEDS: FUROSEMIDE 40 MG/4 ML VIAL IV SCH (21:00)
[2019-09-27] MEDS ORDERED: SENNOSIDES 1 TABLET PO PRN (21:00)
[2019-09-27] MEDS: DOCUSATE SODIUM 100 MG CAPSULE PO SCH (21:00)
[2019-09-27] MEDS: APIXABAN 5 MG TABLET PO SCH (21:00)
[2019-09-27 22:10] LABS: Hematocrit 30.8 % (36.0-48.0); Hemoglobin 9.9 g/dL (12.0-15.0)
[2019-09-28] MEDS: 0.9 % SODIUM CHLORIDE 10 ML SYRINGE IV SCH ×4 (05:17→21:30)
[2019-09-28 05:53] LABS: ALT/SGPT 19 U/l (0-40); AST/SGOT 23 U/l (0-37); Albumin 3.4 gm/dL (3.2-5.2); Albumin/Globulin Ratio 1.3 (1.0-2.3); Alkaline Phosphatase 78 U/L (39-117); Bilirubin,Direct < 0.2 mg/dL (0.0-0.3); Bilirubin,Total 0.7 mg/dL (0.0-1.0); Blood Urea Nitrogen 27 mg/dl (8-23); Calcium 9.2 mg/dl (8.6-10.4); Carbon Dioxide 29 mmol/L (22-30); Chloride 96 mmol/L (96-108); Globulin 2.6 gm/dL (2.2-3.7); Glomerular Filtration Rate 69; Glucose 127 mg/dL (70-105); Lactate Dehydrogenase 168 U/L (94-250); Triglycerides 71 mg/dl (<150); Uric Acid 5.2 mg/dL (2.5-8.0)
[2019-09-28 06:14] LABS: Basophils # (Auto) 0 K/mcL (0.0-0.3); Basophils % (Auto) 0.2 % (0.0-2.0); Eosinophils # (Auto) 0 K/mcL (0.0-0.7); Eosinophils % (Auto) 0.6 % (0.0-7.0); Granulocytes % (Auto) 63.2 % (38.0-78.0); Hematocrit 33.3 % (36.0-48.0); Hemoglobin 10.9 g/dL (12.0-15.0); Lymphocytes # (Auto) 1.2 K/mcL (1.5-4.8); Lymphocytes % (Auto) 19.1 % (15.5-49.0); Mean Cell Volume 91.6 fL (80.0-100.0); Mean Corpuscular HGB Conc 32.6 g/dL (31.0-36.0); Mean Platelet Volume 7.6 fL (7.4-10.4); Monocytes % (Auto) 16.9 % (1.0-12.0); Platelet Count 163 K/mcL (140-440); RBC 3.64 M/mcL (4.00-5.20); Red Cell Distribution Width 19.8 % (11.5-14.5); WBC 6.2 K/mcL (4.5-11.0)
[2019-09-28] MEDS: AMIODARONE HCL 200 MG TABLET PO SCH (08:04)
[2019-09-28] MEDS: LOSARTAN 25 MG TABLET PO SCH (08:06)
[2019-09-28] MEDS: POTASSIUM CHLORIDE 10 MEQ TABLET PO SCH (08:06)
[2019-09-28] MEDS: ATORVASTATIN 40 MG TABLET PO SCH (08:06)
[2019-09-28] MEDS: APIXABAN 5 MG TABLET PO SCH ×2 (08:06→20:35)
[2019-09-28] MEDS: LEVOTHYROXINE 100 MCG TABLET PO SCH (08:07)
[2019-09-28] MEDS: DOCUSATE SODIUM 100 MG CAPSULE PO SCH ×3 (08:07→20:37)
[2019-09-28] MEDS: FUROSEMIDE 40 MG/4 ML VIAL IV SCH ×2 (08:07→15:57)
[2019-09-28] MEDS: METOPROLOL TARTRATE 25 MG TABLET PO SCH (08:07)
[2019-09-28] MEDS: ACETAMINOPHEN 325 MG TABLET PO PRN ×2 (08:33→17:00)
[2019-09-28] MEDS ORDERED: CLOPIDOGREL 75 MG TABLET PO SCH (09:00)
--- NOTE | 2019-09-28 09:48 | XRay Report ---
INDICATION: Previous right thoracentesis TECHNIQUE: AP chest x-ray,portable semiupright COMPARISON: Previous postthoracentesis chest x-ray dated 09/27/2019. Previous prethoracentesis chest x-ray dated 09/27/2019 FINDINGS:There has been some reaccumulation of right pleural fluid. This is greater than on the postthoracentesis chest x-ray but less than on the prethoracentesis chest x-ray. There is mild right basilar infiltrate or volume loss. Heart size is unchanged. Upper lobe vessels are prominent consistent with pulmonary congestion There is left pleural fluid. There is dense consolidation at the left lung base. This may be benign volume loss but pneumonia is possible. IMPRESSION: 1. Partial reaccumulation of right pleural fluid. Mild right basilar infiltrate or volume loss 2. Left pleural effusion. Dense left basilar consolidation Interpreted and Authenticated by: Freddie Mcdermott 09/28/19
[2019-09-28] MEDS: MAGNESIUM OXIDE 400 MG TABLET PO SCH (15:56)
--- NOTE | 2019-09-28 18:59 | Internal Med Progress Note ---
Medical - PN: Subj Patient information: Note initiated : 09/28/19 at 6:57 pm Service Date, if different from initiated Date: [] Patient: Emily Gay 84 y/o F admitted on 09/27/19 for Rib Pain, SOB. Chief Complaint: [] Interval history: 09/27, Presentation Ms. Gay is a 84 year old F Who presents the ED with shortness of breath. History obtained from patient as well as her son. Sounds like her most recent medical issues started when she had a right knee replacement and then a week later had a non-STEMI. Subsequently had a a coronary artery bypass graft x2 vessel at [place] and was hospitalized for several weeks. She has been doing okay until about 5 days ago her son states that he thought she caught a "bug". More labored since then. Yesterday she became weak and fell over and EMS arrived and found to be hypoxic gave her some breathing treatments and her oxygen seemed to improve. Today however she was very weak and could not get out of bed and appeared more short of breath and thus was br ought in the ED. In the ED she was found to be CHF with a large effusions worse on the right and A. fib RVR. She was hypoxic and hypercapnic. Case discussed with her plant buyer in [facility] who felt it was likely complication from surgery but felt patient did not need to be transferred. Just recommended thoracentesis diuresis and starting on anticoagulation. I saw her in the ED her rhythm had converted to sinus. She is on BiPAP and tolerating it well. She complains of the shortness of breath and she is also had a cough of clear sputum with clear sinus drainage. 09/28 Continues to feel pretty well this morning. Hemoglobin drifted down overnight, then has come back up into the mid 10 range. Remains on some oxygen. Continues to diuresis. Some mild reaccumulation of pleural fluid on chest x-ray. No hemoptysis. - Constitutional Vitals: Vital Signs Temp Pulse Resp BP Pulse Ox 99.5 F H 69 22 104/53 99 09/28/19 18:24 09/28/19 14:00 09/28/19 18:24 09/28/19 18:01 09/28/19 18:24 Period Temp Pulse Resp BP Sys/[place] Pulse Ox Last 24 Hr 97.9 F-99.9 F 69-69 15-33 79-116/40-63 94-99 Intake and Output 09/28/19 09/28/19 09/28/19 05:59 13:59 21:59 Intake Total 440 360 Output Total 950 Balance -950 440 360 Weight 220 lb Patient Weight 09/29/19 05:59 Weight 220 lb Intake & Output: Intake & Output 09/28/19 09/28/19 09/28/19 05:59 13:59 21:59 Intake Total 440 360 Output Total 950 Balance -950 440 360 Weight 220 lb Intake: Oral 440 360 Output: Urine Catheter Amount 950 Other: Meal Lunch Dinner Percent of Meal Consumed 100% 100% Feeding Ability Assist with Tray Set Up Urine Appearance Clear Uretheral (Curry) Clear Urine Color Pale Uretheral (Curry) Pale Urine Odor Uretheral (Curry) Normal Exam: General: Sitting up in chair no acute distress, speaking full sentences Chest: Diminished at the left base, rales at both the right and left bases. Cardiovascular: Regular, bit distant, no murmur appreciated. 1+ edema Abdomen: Soft, nontender Neuro: Alert, oriented x3, some generalized weakness. Medical - PN: Obj Da - Labs CBC & Chem 7: 09/28/19 04:00 09/28/19 04:00 Labs: Abnormal Lab Results 09/28/19 09/28/19 09/27/19 04:00 04:00 21:15 RBC 3.64 L Hgb 10.9 L 9.9 L Hct 33.3 L 30.8 L RDW 19.8 H Lymph % (Auto) [place] % (Auto) 16.9 H Lymph # (Auto) 1.2 L [place] # (Auto) 1.0 H ABG Methemoglobin VBG pCO2 VBG pO2 VBG HCO3 VBG Total CO2 VBG O2 Saturation VBG Base Excess Carboxyhemoglobin Total Hemoglobin Chloride BUN 27 H Glucose 127 H Phosphorus 5.0 H Total Bilirubin NT-Pro-B Natriuret Pep Urine Protein Urine Urobilinogen Urine WBC Ur Squamous Epith Cells Urine Bacteria Hyaline Casts Other Casts Urine Mucus 09/27/19 09/27/19 09/27/19 18:15 14:39 14:39 RBC Hgb 10.3 L 10.5 L Hct 31.3 L 31.9 L RDW Lymph % (Auto) [place] % (Auto) Lymph # (Auto) [place] # (Auto) ABG Methemoglobin 0.3 L VBG pCO2 59.3 H VBG pO2 82 H VBG HCO3 34.5 H VBG Total CO2 36.3 H VBG O2 Saturation 88.2 H VBG Base Excess 7.9 H Carboxyhemoglobin 7.0 H Total Hemoglobin 10.4 L Chloride BUN Glucose Phosphorus Total Bilirubin NT-Pro-B Natriuret Pep Urine Protein Urine Urobilinogen Urine WBC Ur Squamous Epith Cells Urine Bacteria Hyaline Casts Other Casts Urine Mucus 09/27/19 09/27/19 09/27/19 11:24 09:07 07:56 RBC Hgb Hct RDW Lymph % (Auto) [place] % (Auto) Lymph # (Auto) [place] # (Auto) ABG Methemoglobin VBG pCO2 VBG pO2 VBG HCO3 VBG Total CO2 VBG O2 Saturation VBG Base Excess Carboxyhemoglobin Total Hemoglobin Chloride BUN Glucose Phosphorus Total Bilirubin NT-Pro-B Natriuret Pep 942.9 H Urine Protein 30 A 30 A Urine Urobilinogen 2.0 A 2.0 A Urine WBC 5 H 9 H Ur Squamous Epith Cells 29 H Urine Bacteria Few A Mod A Hyaline Casts 42 H 38 H Other Casts Many A Urine Mucus Many A Many A 09/27/19 09/27/19 07:56 07:56 RBC 3.82 L Hgb 11.3 L Hct 34.5 L RDW 20.1 H Lymph % (Auto) 14.1 L [place] % (Auto) 15.3 H Lymph # (Auto) 1.1 L [place] # (Auto) 1.2 H ABG Methemoglobin VBG pCO2 VBG pO2 VBG HCO3 VBG Total CO2 VBG O2 Saturation VBG Base Excess Carboxyhemoglobin Total Hemoglobin Chloride 95 L BUN Glucose 114 H Phosphorus Total Bilirubin 1.2 H NT-Pro-B Natriuret Pep Urine Protein Urine Urobilinogen Urine WBC Ur Squamous Epith Cells Urine Bacteria Hyaline Casts Other Casts Urine Mucus Microbiology 09/27/19 13:02 Gram Stain - Final Thoracic Fluid Body Fluid Culture - Preliminary 09/27/19 08:55 Blood Culture - Preliminary Blood 09/27/19 09:13 Blood Culture - Preliminary Blood 09/27/19 11:24 Urine Culture - Preliminary Urine - Clean Void Mid-Stream Gram negative bacillus 09/27/19 13:18 MRSA (PCR) - Final Nose Meds: Medications Acetaminophen (Tylenol) 650 mg PO Q6HP PRN PRN Reason: PAIN/FEVER > 101 Last Admin: 09/28/19 17:00 Dose: 650 mg Documented by: Albuterol/Ipratropium (Duoneb) 3 ml NEB Q4HP PRN PRN Reason: Shortness Of Breath [facility] Admin: 09/28/19 08:04 Dose: 100 mg Documented by: Apixaban (Eliquis) 5 mg PO BID [facility] Last Admin: 09/28/19 08:06 Dose: 5 mg Documented by: Atorvastatin Calcium (Lipitor) 40 mg PO DAILY [facility] Last Admin: 09/28/19 08:06 Dose: 40 mg Documented by: Docusate Sodium (Colace) 100 mg PO BID [facility] Last Admin: 09/28/19 08:07 Dose: 100 mg Documented by: Furosemide (Lasix) 40 mg IV BIDD [facility] Last Admin: 09/28/19 15:57 Dose: 40 mg Documented by: Potassium Chloride 40 meq/ (Dextrose) 520 mls @ 130 mls/hr IV UD PRN PRN Reason: Potassium < 3 Magnesium Sulfate (Magnesium Sulfate) 2 gm in 50 mls @ 50 mls/hr IV UD PRN PRN Reason: Magnesium </= 1.6 Levothyroxine Sodium (Synthroid) 100 mcg PO ACB [facility] Last Admin: 09/28/19 08:07 Dose: 100 mcg Documented by: Losartan Potassium (Cozaar) 25 mg PO DAILY [facility] Last Admin: 09/28/19 08:06 Dose: 25 mg Documented by: Magnesium Oxide (Magnesium Oxide) 400 mg PO DAILY@1200 [facility] Last Admin: 09/28/19 15:56 Dose: 400 mg Documented by: Metoprolol Tartrate (Lopressor) 25 mg PO DAILY [facility] Last Admin: 09/28/19 08:07 Dose: 25 mg Documented by: Metoprolol Tartrate (Lopressor) 5 mg IV Q2HP PRN PRN Reason: Tachyarrhythmias HR>110 Ondansetron HCl (Zofran) 4 mg IV Q4HP PRN PRN Reason: Nausea And Vomiting Polyethylene Glycol (Miralax) 17 gm PO DAILYP PRN PRN Reason: Constipation Potassium Chloride (Kdur) 40 meq PO UD PRN PRN Reason: Potssium is 3-3.5 Potassium Chloride (Kdur) 40 meq PO UD PRN PRN Reason: Potassium < 3 Potassium Chloride (Kdur) 10 meq PO QAMCC [facility] Last Admin: 09/28/19 08:06 Dose: 10 meq Documented by: Gerardo (Senokot) 2 tab PO HSP PRN PRN Reason: Constipation Sodium Chloride (Saline Flush) 10 ml IV Q8 [facility] Last Admin: 09/28/19 15:56 Dose: 10 ml Documented by: - Impressions Echo report pending - Imaging and cardiology Chest x-ray Status: image reviewed by me Additional comments: IMPRESSION: 1. Partial reaccumulation of right pleural fluid. Mild right basilar infiltrate or volume loss 2. Left pleural effusion. Dense left basilar consolidation - ABG Interpretation ABG results: 09/27/19 14:39 ABG Methemoglobin 0.3 L VBG pH 7.38 VBG pCO2 59.3 H VBG pO2 82 H VBG HCO3 34.5 H VBG Total CO2 36.3 H VBG O2 Saturation 88.2 H VBG Base Excess 7.9 H Medical - PN: A/P - Time Spent With Patient Total time spent is greater than 50% in coordination of care (as documented) at patient's floor/unit and/or counseling patient: Greater than 35 minutes - Narrative A/P Narrative: 84-year-old female with history of coronary disease, recent CABG in June following NSTEMI, presents with progressive dyspnea. Acute on chronic diastolic CHF with pulmonary edema and pleural effusions. Suspected complication of recent CABG. Thoracentesis of 1.5 L revealed bloody fluid at the margin of being hemothorax. Systemic H/H did drift down, though has stabilized. Less concern for ongoing bleed, though it is on the side where she fell against a piece of furniture. No evidence of rib fracture or other trauma on CT scan. Discussed the findings of the thoracentesis with Dr. Matos, on-call cardiology at [place]. Plan: Continue with diuresis, follow daily weights, intake and output Follow-up echo Follow systemic H/H Will hold on anticoagulation for atrial fibrillation at this point until assured hemoglobin stable. Acute hypoxic/hypercapnic respiratory failure. Secondary to pleural effusions and congestive heart failure. Improving. Still requiring 4 L nasal cannula, does not require BiPAP. Plan: Continue supplemental oxygen as needed. Continue to diurese. Encourage luminary toilet. CAD with recent CABG x2: at [place]. No current chest symptoms. Plan: Follow-up echo, continue medication regimen, except held Plavix yesterday with findings of bloody effusion. PAF with RVR. Intermittent bouts of paroxysmal A. fib after admission to the hospital. Generally self-limited. Plan: Continue to monitor, continue beta-aman and amiodarone. Holding on systemic anticoagulation secondary to bloody effusion for now. HTN/HLD. Stable. Plan: Continue home medications. Hypothyroidism. On supplement. Plan: Continue home meds. -pt/ot -ppx: eliquis when hemoglobin stable Medical - PN: Qual - VTE Deep Vein Thrombosis/Pulmonary Embolism Present on Admission: No
[2019-09-28] MEDS: cefTRIAXone 1 GM VIAL IV SCH (20:34)
[2019-09-29] MEDS: ACETAMINOPHEN 325 MG TABLET PO PRN ×3 (03:57→17:23)
[2019-09-29 05:31] LABS: Basophils # (Auto) 0 K/mcL (0.0-0.3); Basophils % (Auto) 0.4 % (0.0-2.0); Eosinophils # (Auto) 0 K/mcL (0.0-0.7); Eosinophils % (Auto) 0.5 % (0.0-7.0); Granulocytes % (Auto) 57.4 % (38.0-78.0); Hematocrit 30.8 % (36.0-48.0); Lymphocytes # (Auto) 1.1 K/mcL (1.5-4.8); Lymphocytes % (Auto) 27.3 % (15.5-49.0); Mean Cell Volume 91.3 fL (80.0-100.0); Mean Corpuscular HGB Conc 32.4 g/dL (31.0-36.0); Mean Platelet Volume 7.3 fL (7.4-10.4); Monocytes # (Auto) 0.6 K/mcL (0.1-0.9); Monocytes % (Auto) 14.4 % (1.0-12.0); Platelet Count 181 K/mcL (140-440); RBC 3.38 M/mcL (4.00-5.20); Red Cell Distribution Width 20.1 % (11.5-14.5); WBC 4.1 K/mcL (4.5-11.0)
[2019-09-29] MEDS: METOPROLOL TARTRATE 5 MG/5 ML VIAL IV PRN ×2 (05:49→13:31)
[2019-09-29] MEDS: 0.9 % SODIUM CHLORIDE 10 ML SYRINGE IV SCH ×3 (06:06→22:29)
[2019-09-29 07:04] LABS: Blood Urea Nitrogen 25 mg/dl (8-23); Carbon Dioxide 34 mmol/L (22-30); Chloride 95 mmol/L (96-108); Glomerular Filtration Rate 81; Glucose 126 mg/dL (70-105)
[2019-09-29] MEDS: LEVOTHYROXINE 100 MCG TABLET PO SCH (07:49)
[2019-09-29] MEDS: DOCUSATE SODIUM 100 MG CAPSULE PO SCH ×2 (08:23→22:28)
[2019-09-29] MEDS: POTASSIUM CHLORIDE 10 MEQ TABLET PO SCH (08:24)
[2019-09-29] MEDS: METOPROLOL TARTRATE 25 MG TABLET PO SCH (08:24)
[2019-09-29] MEDS: ATORVASTATIN 40 MG TABLET PO SCH (08:24)
[2019-09-29] MEDS ORDERED: FUROSEMIDE 40 MG/4 ML VIAL IV ONE (08:24)
[2019-09-29] MEDS: FUROSEMIDE 40 MG/4 ML VIAL IV SCH (08:24)
[2019-09-29] MEDS: AMIODARONE HCL 200 MG TABLET PO SCH (08:24)
[2019-09-29] MEDS: cefTRIAXone 1 GM VIAL IV SCH (08:29)
[2019-09-29] MEDS: APIXABAN 5 MG TABLET PO SCH ×2 (08:29→22:28)
[2019-09-29] MEDS: LOSARTAN 25 MG TABLET PO SCH (09:19)
[2019-09-29] MEDS ORDERED: DILTIAZEM 25 MG/5 ML VIAL IV PRN (09:58)
--- NOTE | 2019-09-29 13:14 | Internal Med Progress Note ---
Medical - PN: Subj Patient information: Note initiated : 09/29/19 at 1:12 pm Service Date, if different from initiated Date: [] Patient: Emily Gay a 84 y/o F admitted on 09/27/19 for Rib Pain, SOB. Chief Complaint: Follow-up respiratory failure, heart failure Interval history: 09/27, Presentation Ms. Gay is a 84 year old F Who presents the ED with shortness of breath. History obtained from patient as well as her son. Sounds like her most recent medical issues started when she had a right knee replacement and then a week later had a non-STEMI. Subsequently had a a coronary artery bypass graft x2 ves lester at [facility] and was hospitalized for several weeks. She has been doing okay until about 5 days ago her son states that he thought she caught a "bug". More labored since then. Yesterday she became weak and fell over and EMS arrived and found to be hypoxic gave her some breathing treatments and her oxygen seemed to improve. Today however she was very weak and could not get out of bed and appeared more short of breath and thus was brought in the ED. In the ED she was found to be CHF with a large effusions worse on the right and A. fib RVR. She was hypoxic and hypercapnic. Case discussed with her creative writing english professor in [facility] who felt it was likely complication from surgery but felt patient did not need to be transferred. Just recommended thoracentesis diuresis and starting on anticoagulation. I saw her in the ED her rhythm had converted to sinus. She is on BiPAP and tolerating it well. She complains of the shortness of breath and she is also had a cough of clear sputum with clear sinus drainage. 09/28 Continues to feel pretty well this morning. Hemoglobin drifted down overnight, then has come back up into the mid 10 range. Remains on some oxygen. Continues to diuresis. Some mild reaccumulation of pleural fluid on chest x-ray. No hemoptysis. 09/29 Some diuresis, down to 2 L nasal cannula. Her son was wondering why she was not on BiPAP because she has difficulty taking a deep breath. She tells me she has had difficulty taking a deep inspiratory effort for years, predating her CABG. No evidence of progressive hypercapnia necessitating BiPAP. Pain on the right side of her chest from the fall is improving. Hemoglobin is generally been stable. - Constitutional Vitals: Vital Signs Temp Pulse Resp BP Pulse Ox 100.0 F H 120 H 19 98/55 95 09/29/19 13:08 09/29/19 05:45 09/29/19 13:08 09/29/19 13:08 09/29/19 13:08 Period Temp Pulse Resp BP Sys/Madrid Pulse Ox Last 24 Hr 98.5 F-100.0 F 69-120 14-31 79-128/40-73 79-100 Intake and Output 09/28/19 09/29/19 09/29/19 21:59 05:59 13:59 Intake Total 360 50 600 Output Total 984 602 1655 Balance -345 -585 -460 Weight 220 lb 14.4 oz Intake & Output: Intake & Output 09/28/19 09/29/19 09/29/19 21:59 05:59 13:59 Intake Total 360 50 600 Output Total 717 724 5223 Balance -345 -585 -460 Weight 220 lb 14.4 oz Intake: Oral 360 50 600 Output: Urine Catheter Amount [phone] Other: Meal Dinner Lunch Percent of Meal Consumed 100% 100% Feeding Ability Assist with Tray Set Up Independent Urine Appearance Cloudy Clear Clear Sediment Uretheral (Curry) Cloudy Clear Sediment Urine Color Straw Pale Pale Uretheral (Curry) Straw Pale Urine Odor Normal Uretheral (Curry) Normal Stool Size Moderate Stool Color Brown Yellow Stool Consistency Dry and Hard Formed # Bowel Movements 1 Exam: General: Sitting up in chair at edge of bed in no acute distress Chest: Diminished at bases, few basal rales. Respirations are unlabored. Cardiovascular: Regular. Intermittent periods of AF/RVR on monitor. 1+ edema Abdomen: Soft Neuro: Alert, oriented x3, generally weak, though ambulating further today. Medical - PN: Obj Da - Labs CBC & Chem 7: 09/29/19 04:00 09/29/19 04:00 Labs: Abnormal Lab Results 09/29/19 09/29/19 09/28/19 04:00 04:00 04:00 WBC 4.1 L RBC 3.38 L Hgb 10.0 L Hct 30.8 L RDW 20.1 H MPV 7.3 L Lymph % (Auto) [place] % (Auto) 14.4 H Lymph # (Auto) 1.1 L [place] # (Auto) ABG Methemoglobin VBG pCO2 VBG pO2 VBG HCO3 VBG Total CO2 VBG O2 Saturation VBG Base Excess Carboxyhemoglobin Total Hemoglobin Chloride 95 L Carbon Dioxide 34 H BUN 25 H 27 H Glucose 126 H 127 H Phosphorus 5.0 H Total Bilirubin NT-Pro-B Natriuret Pep Urine Protein Urine Urobilinogen Urine WBC Ur Squamous Epith Cells Urine Bacteria Hyaline Casts Other Casts Urine Mucus 09/28/19 09/27/19 09/27/19 04:00 21:15 18:15 WBC RBC 3.64 L Hgb 10.9 L 9.9 L 10.3 L Hct 33.3 L 30.8 L 31.3 L RDW 19.8 H MPV Lymph % (Auto) [place] % (Auto) 16.9 H Lymph # (Auto) 1.2 L [place] # (Auto) 1.0 H ABG Methemoglobin VBG pCO2 VBG pO2 VBG HCO3 VBG Total CO2 VBG O2 Saturation VBG Base Excess Carboxyhemoglobin Total Hemoglobin Chloride Carbon Dioxide BUN Glucose Phosphorus Total Bilirubin NT-Pro-B Natriuret Pep Urine Protein Urine Urobilinogen Urine WBC Ur Squamous Epith Cells Urine Bacteria Hyaline Casts Other Casts Urine Mucus 09/27/19 09/27/19 09/27/19 14:39 14:39 11:24 WBC RBC Hgb 10.5 L Hct 31.9 L RDW MPV Lymph % (Auto) [place] % (Auto) Lymph # (Auto) [place] # (Auto) ABG Methemoglobin 0.3 L VBG pCO2 59.3 H VBG pO2 82 H VBG HCO3 34.5 H VBG Total CO2 36.3 H VBG O2 Saturation 88.2 H VBG Base Excess 7.9 H Carboxyhemoglobin 7.0 H Total Hemoglobin 10.4 L Chloride Carbon Dioxide BUN Glucose Phosphorus Total Bilirubin NT-Pro-B Natriuret Pep Urine Protein 30 A Urine Urobilinogen 2.0 A Urine WBC 5 H Ur Squamous Epith Cells Urine Bacteria Few A Hyaline Casts 42 H Other Casts Urine Mucus Many A 09/27/19 09/27/19 09/27/19 09:07 07:56 07:56 WBC RBC Hgb Hct RDW MPV Lymph % (Auto) [place] % (Auto) Lymph # (Auto) [place] # (Auto) ABG Methemoglobin VBG pCO2 VBG pO2 VBG HCO3 VBG Total CO2 VBG O2 Saturation VBG Base Excess Carboxyhemoglobin Total Hemoglobin Chloride 95 L Carbon Dioxide BUN Glucose 114 H Phosphorus Total Bilirubin 1.2 H NT-Pro-B Natriuret Pep 942.9 H Urine Protein 30 A Urine Urobilinogen 2.0 A Urine WBC 9 H Ur Squamous Epith Cells 29 H Urine Bacteria Mod A Hyaline Casts 38 H Other Casts Many A Urine Mucus Many A 09/27/19 07:56 WBC RBC 3.82 L Hgb 11.3 L Hct 34.5 L RDW 20.1 H MPV Lymph % (Auto) 14.1 L [place] % (Auto) 15.3 H Lymph # (Auto) 1.1 L [place] # (Auto) 1.2 H ABG Methemoglobin VBG pCO2 VBG pO2 VBG HCO3 VBG Total CO2 VBG O2 Saturation VBG Base Excess Carboxyhemoglobin Total Hemoglobin Chloride Carbon Dioxide BUN Glucose Phosphorus Total Bilirubin NT-Pro-B Natriuret Pep Urine Protein Urine Urobilinogen Urine WBC Ur Squamous Epith Cells Urine Bacteria Hyaline Casts Other Casts Urine Mucus Microbiology 09/27/19 13:02 Gram Stain - Final Thoracic Fluid Body Fluid Culture - Final 09/27/19 08:55 Blood Culture - Preliminary Blood 09/27/19 09:13 Blood Culture - Preliminary Blood 09/27/19 11:24 Urine Culture - Final Urine - Clean Void Mid-Stream Escherichia coli 09/27/19 13:18 MRSA (PCR) - Final Nose Meds: Medications Acetaminophen (Tylenol) 650 mg PO Q6HP PRN PRN Reason: PAIN/FEVER > 101 Last Admin: 09/29/19 03:57 Dose: 650 mg Documented by: Albuterol/Ipratropium (Duoneb) 3 ml NEB Q4HP PRN PRN Reason: Shortness Of Breath Amiodarone HCl (Cordarone) 100 mg PO [facility] Last Admin: 09/29/19 08:24 Dose: 100 mg Documented by: Apixaban (Eliquis) 5 mg PO BID [facility] Last Admin: 09/29/19 08:29 Dose: 5 mg Documented by: Atorvastatin Calcium (Lipitor) 40 mg PO DAILY [facility] Last Admin: 09/29/19 08:24 Dose: 40 mg Documented by: Ceftriaxone Sodium (Rocephin) 1 gm IV Q24H [facility]; Protocol Last Admin: 09/29/19 08:29 Dose: 1 gm Documented by: Diltiazem HCl (Cardizem) 10 mg IV Q2H PRN PRN Reason: Tachyarrhythmias Docusate Sodium (Colace) 100 mg PO BID [facility] Last Admin: 09/29/19 08:23 Dose: 100 mg Documented by: Furosemide (Lasix) 80 mg IV BIDD [facility] Potassium Chloride 40 meq/ (Dextrose) 520 mls @ 130 mls/hr IV UD PRN PRN Reason: Potassium < 3 Magnesium Sulfate (Magnesium Sulfate) 2 gm in 50 mls @ 50 mls/hr IV UD PRN PRN Reason: Magnesium </= 1.6 Levothyroxine Sodium (Synthroid) 100 mcg PO ACB [facility] Last Admin: 09/29/19 07:49 Dose: 100 mcg Documented by: Losartan Potassium (Cozaar) 25 mg PO DAILY [facility] Last Admin: 09/29/19 09:19 Dose: Not Given Documented by: Magnesium Oxide (Magnesium Oxide) 400 mg PO DAILY@1200 [facility] Last Admin: 09/28/19 15:56 Dose: 400 mg Documented by: Metoprolol Tartrate (Lopressor) 25 mg PO DAILY [facility] Last Admin: 09/29/19 08:24 Dose: 25 mg Documented by: Metoprolol Tartrate (Lopressor) 5 mg IV Q2HP PRN PRN Reason: Tachyarrhythmias HR>110 Last Admin: 09/29/19 05:49 Dose: 5 mg Documented by: Ondansetron HCl (Zofran) 4 mg IV Q4HP PRN PRN Reason: Nausea And Vomiting Polyethylene Glycol (Miralax) 17 gm PO DAILYP PRN PRN Reason: Constipation Potassium Chloride (Kdur) 40 meq PO UD PRN PRN Reason: Potssium is 3-3.5 Potassium Chloride (Kdur) 40 meq PO UD PRN PRN Reason: Potassium < 3 Potassium Chloride (Kdur) 10 meq PO QAMCC [facility] Last Admin: 09/29/19 08:24 Dose: 10 meq Documented by: Senna (Senokot) 2 tab PO HSP PRN PRN Reason: Constipation Sodium Chloride (Saline Flush) 10 ml IV Q8 [facility] Last Admin: 09/29/19 06:06 Dose: 10 ml Documented by: - Impressions Echocardiogram from 09/28/2019 Left ventricular systolic function is normal, estimated EF 60-65% Left ventricular diastolic function is normal The RV systolic function is mildly reduced Doppler findings do not suggest pulmonary hypertension No significant valvular abnormalities The study was technically difficult - ABG Interpretation ABG results: 09/27/19 14:39 ABG Methemoglobin 0.3 L VBG pH 7.38 VBG pCO2 59.3 H VBG pO2 82 H VBG HCO3 34.5 H VBG Total CO2 36.3 H VBG O2 Saturation 88.2 H VBG Base Excess 7.9 H Medical - PN: A/P - Time Spent With Patient Total time spent is greater than 50% in coordination of care (as documented) at patient's floor/unit and/or counseling patient: Greater than 35 minutes - Narrative A/P Narrative: 84-year-old female with history of coronary disease, recent CABG in June following NSTEMI, presents with progressive dyspnea. Acute on chronic diastolic CHF (HFpEF) with pulmonary edema and pleural effusions. Suspected complication of recent CABG. Thoracentesis of 1.4 L with bloody fluid at the margin of being hemothorax (pleural hematocrit just less than 50% of systemic hematocrit). Systemic H/H did drift down, though has stabilized. Less concern for ongoing bleed, though it is on the side where she fell against a piece of furniture. No evidence of rib fracture or other trauma on CT scan. Discussed the findings of the thoracentesis with Dr. Matos, on-call cardiology at [facility] on 09/27. Echocardiogram with preserved ejection fraction. Plan: Increase furosemide 80 mg twice daily, follow daily weights, intake and output Follow systemic H/H Continue to hold anticoagulation for atrial fibrillation at this point until assured hemoglobin stable. Acute hypoxic/hypercapnic respiratory failure. Now with hypoxic respiratory failure, improving. Secondary to pleural effusions and congestive heart failure. Requiring 2 L nasal cannula on 09/29, does not require BiPAP. Plan: Continue supplemental oxygen as needed. Continue to diurese. Encourage pulmonary toilet. CAD with recent CABG x2: at [facility]. No current chest symptoms. Preserved ejection fraction on echocardiogram yesterday. Plan: Continue medication regimen, except holding Plavix with findings of bloody effusion. If stable hemoglobin, likely resume 09/30 PAF with RVR. Intermittent bouts of paroxysmal A. fib after admission to the hospital. Generally self-limited. Plan: Continue to monitor, continue beta-aman and amiodarone. Holding on s ystemic anticoagulation secondary to bloody effusion for now. HTN/HLD. Stable. Plan: Continue home medications. Hypothyroidism. On supplement. Plan: Continue home meds. -pt/ot -ppx: eliquis when hemoglobin stable Medical - PN: Qual - VTE Deep Vein Thrombosis/Pulmonary Embolism Present on Admission: No
[2019-09-29] MEDS: MAGNESIUM OXIDE 400 MG TABLET PO SCH (13:30)
[2019-09-29] MEDS ORDERED: FUROSEMIDE 40 MG/4 ML VIAL IV SCH (16:00)
[2019-09-29] MEDS: BUMETANIDE 0.25 MG/ML VIAL IV SCH (16:52)
[2019-09-30] MEDS: METOPROLOL TARTRATE 5 MG/5 ML VIAL IV PRN ×2 (02:42→21:50)
[2019-09-30] MEDS: ACETAMINOPHEN 325 MG TABLET PO PRN ×3 (04:12→16:56)
[2019-09-30] MEDS: 0.9 % SODIUM CHLORIDE 10 ML SYRINGE IV SCH ×3 (05:59→21:16)
[2019-09-30] MEDS: LEVOTHYROXINE 100 MCG TABLET PO SCH (07:20)
[2019-09-30] MEDS: POTASSIUM CHLORIDE 10 MEQ TABLET PO SCH (08:29)
[2019-09-30] MEDS: ATORVASTATIN 40 MG TABLET PO SCH (08:29)
[2019-09-30] MEDS: BUMETANIDE 0.25 MG/ML VIAL IV SCH ×4 (08:29→16:37)
[2019-09-30] MEDS: AMIODARONE HCL 200 MG TABLET PO SCH (08:29)
[2019-09-30] MEDS: METOPROLOL TARTRATE 25 MG TABLET PO SCH (08:29)
[2019-09-30] MEDS: DOCUSATE SODIUM 100 MG CAPSULE PO SCH ×2 (08:29→21:16)
[2019-09-30] MEDS: APIXABAN 5 MG TABLET PO SCH ×2 (08:34→21:16)
[2019-09-30] MEDS: cefTRIAXone 1 GM VIAL IV SCH (08:34)
[2019-09-30] MEDS: LOSARTAN 25 MG TABLET PO SCH (08:34)
[2019-09-30 09:07] LABS: Blood Urea Nitrogen 16 mg/dl (8-23); Calcium 9.2 mg/dl (8.6-10.4); Carbon Dioxide 39 mmol/L (22-30); Chloride 90 mmol/L (96-108); Glomerular Filtration Rate 81; Glucose 131 mg/dL (70-105)
[2019-09-30] MEDS: MAGNESIUM OXIDE 400 MG TABLET PO SCH (12:04)
--- NOTE | 2019-09-30 13:45 | Internal Med Progress Note ---
Medical - PN: Subj Patient information: Note initiated : 09/30/19 at 1:43 pm Service Date, if different from initiated Date: [] Patient: Emily Gay a 84 y/o F admitted on 09/27/19 for Rib Pain, SOB. Chief Complaint: f/u CHF Interval history: 09/27, Presentation Ms. Gay is a 84 year old F Who presents the ED with shortness of breath. History obtained from patient as well as her son. Sounds like her most recent medical issues started when she had a right knee replacement and then a week later had a non-STEMI. Subsequently had a a coronary artery bypass graft x2 vessel at [facility] and was hospitalized for several weeks. She has been doing okay until about 5 days ago her son states that he thought sh e caught a "bug". More labored since then. Yesterday she became weak and fell over and EMS arrived and found to be hypoxic gave her some breathing treatments and her oxygen seemed to improve. Today however she was very weak and could not get out of bed and appeared more short of breath and thus was brought in the ED. In the ED she was found to be CHF with a large effusions worse on the right and A. fib RVR. She was hypoxic and hypercapnic. Case discussed with her flooring grader in [facility] who felt it was likely complication from surgery but felt patient did not need to be transferred. Just recommended thoracentesis diuresis and starting on anticoagulation. I saw her in the ED her rhythm had converted to sinus. She is on BiPAP and tolerating it well. She complains of the shortness of breath and she is also had a cough of clear sputum with clear sinus drainage. 09/28 Continues to feel pretty well this morning. Hemoglobin drifted down overnight, then has come back up into the mid 10 range. Remains on some oxygen. Continues to diuresis. Some mild reaccumulation of pleural fluid on chest x-ray. No hemoptysis. 09/29 Some diuresis, down to 2 L nasal cannula. Her son was wondering why she was not on BiPAP because she has difficulty taking a deep breath. She tells me she has had difficulty taking a deep inspiratory effort for years, predating her CABG. No evidence of progressive hypercapnia necessitating BiPAP. Pain on the right side of her chest from the fall is improving. Hemoglobin is generally been stable. 09/30 Change to 1 mg of Bumex yesterday afternoon, still not with great diuresis. Received 2 mg this morning. However slowly improving, now off of oxygen. Patient still with twinges of pain on the right from the fall. No hemoptysis. Her son was wondering whether or not BiPAP could be used to help with her inspiratory effort, she has had poor inspiratory effort on incentive spirometer since her surgery in June. Witnessing her I-S use, she tends not to put in a lot of effort and stop inspiration prematurely. I coached her, and advised her son that primarily strengthening the muscles responsible for respiration be the primary treatment for her shallow breathing. We could consider a trial of CPAP at night to see if that may help as well but in general BiPAP was not indicated for low tidal volumes. - Constitutional Vitals: Vital Signs Temp Pulse Resp BP Pulse Ox 99.1 F H 65 18 100/44 93 09/30/19 13:01 09/30/19 06:54 09/30/19 11:17 09/30/19 13:01 09/30/19 13:01 Period Temp Pulse Resp BP Sys/Madrid Pulse Ox Last 24 Hr 98.7 F-100.1 F 65-126 15-21 89-135/44-98 86-100 Intake and Output 09/29/19 09/30/19 09/30/19 21:59 05:59 13:59 Intake Total 480 200 360 Output Total 760 296 1578 Balance 155 725 -697 Weight 220 lb 8 oz Intake & Output: Intake & Output 09/29/19 09/30/19 09/30/19 21:59 05:59 13:59 Intake Total 480 200 360 Output Total 762 765 0785 Balance 155 -725 -697 Weight 220 lb 8 oz Intake: Oral 480 200 360 Output: Urine Catheter Amount [phone] Other: Meal Dinner Lunch Percent of Meal Consumed 100% 100% Feeding Ability Assist with Tray Set Up Independent Urine Appearance Clear Clear Clear Uretheral (Curry) Cloudy Clear Clear Urine Color Bright Yellow Straw Bright Yellow Uretheral (Curry) Bright Yellow Bright Yellow Bright Yellow Urine Odor Normal Normal Normal Uretheral (Curry) Normal Normal Stool Size Small Stool Color Brown Brown Stool Consistency Soft Soft Formed Formed Exam: General: Sitting up in chair, pleasant, no acute distress Chest: Better aeration at the bases bilaterally with only faint rales Cardiovascular: Regular at the time of my exam, trace edema Abdomen: Soft, nontender Neuro: Alert, oriented x3, some generalized weakness but improving. Medical - PN: Obj Da - Labs CBC & Chem 7: 09/29/19 04:00 09/30/19 08:03 Labs: Abnormal Lab Results 09/30/19 09/29/19 09/29/19 08:03 04:00 04:00 WBC 4.1 L RBC 3.38 L Hgb 10.0 L Hct 30.8 L RDW 20.1 H MPV 7.3 L Gem % (Auto) 14.4 H Lymph # (Auto) 1.1 L Gem # (Auto) ABG Methemoglobin VBG pCO2 VBG pO2 VBG HCO3 VBG Total CO2 VBG O2 Saturation VBG Base Excess Carboxyhemoglobin Total Hemoglobin Chloride 90 L 95 L Carbon Dioxide 39 H 34 H Anion Gap 7.0 L BUN 25 H Glucose 131 H 126 H Phosphorus 09/28/19 09/28/19 09/27/19 04:00 04:00 21:15 WBC RBC 3.64 L Hgb 10.9 L 9.9 L Hct 33.3 L 30.8 L RDW 19.8 H MPV [place] % (Auto) 16.9 H Lymph # (Auto) 1.2 L Gem # (Auto) 1.0 H ABG Methemoglobin VBG pCO2 VBG pO2 VBG HCO3 VBG Total CO2 VBG O2 Saturation VBG Base Excess Carboxyhemoglobin Total Hemoglobin Chloride Carbon Dioxide Anion Gap BUN 27 H Glucose 127 H Phosphorus 5.0 H 09/27/19 09/27/19 09/27/19 18:15 14:39 14:39 WBC RBC Hgb 10.3 L 10.5 L Hct 31.3 L 31.9 L RDW MPV Gem % (Auto) Lymph # (Auto) Gem # (Auto) ABG Methemoglobin 0.3 L VBG pCO2 59.3 H VBG pO2 82 H VBG HCO3 34.5 H VBG Total CO2 36.3 H VBG O2 Saturation 88.2 H VBG Base Excess 7.9 H Carboxyhemoglobin 7.0 H Total Hemoglobin 10.4 L Chloride Carbon Dioxide Anion Gap BUN Glucose Phosphorus Meds: Medications Acetaminophen (Tylenol) 650 mg PO Q6HP PRN PRN Reason: PAIN/FEVER > 101 Last Admin: 09/30/19 10:38 Dose: 650 mg Documented by: Albuterol/Ipratropium (Duoneb) 3 ml NEB Q4HP PRN PRN Reason: Shortness Of Breath Amiodarone HCl (Cordarone) 100 mg PO [facility] Last Admin: 09/30/19 08:29 Dose: 100 mg Documented by: Apixaban (Eliquis) 5 mg PO BID [facility] Last Admin: 09/30/19 08:34 Dose: 5 mg Documented by: Atorvastatin Calcium (Lipitor) 40 mg PO DAILY [facility] Last Admin: 09/30/19 08:29 Dose: 40 mg Documented by: Bumetanide (Bumex) 2 mg IV BIDD [facility] Last Admin: 09/30/19 08:50 Dose: 2 mg Documented by: Ceftriaxone Sodium (Rocephin) 1 gm IV Q24H [facility]; Protocol Last Admin: 09/30/19 08:34 Dose: 1 gm Documented by: Diltiazem HCl (Cardizem) 10 mg IV Q2H PRN PRN Reason: Tachyarrhythmias Last Admin: 09/30/19 00:47 Dose: 10 mg Documented by: Docusate Sodium (Colace) 100 mg PO BID [facility] Last Admin: 09/30/19 08:29 Dose: 100 mg Documented by: Potassium Chloride 40 meq/ (Dextrose) 520 mls @ 130 mls/hr IV UD PRN PRN Reason: Potassium < 3 Magnesium Sulfate (Magnesium Sulfate) 2 gm in 50 mls @ 50 mls/hr IV UD PRN PRN Reason: Magnesium </= 1.6 Levothyroxine Sodium (Synthroid) 100 mcg PO ACB [facility] Last Admin: 09/30/19 07:20 Dose: 100 mcg Documented by: Losartan Potassium (Cozaar) 25 mg PO DAILY [facility] Last Admin: 09/30/19 08:34 Dose: 25 mg Documented by: Magnesium Oxide (Magnesium Oxide) 400 mg PO DAILY@1200 [facility] Last Admin: 09/30/19 12:04 Dose: 400 mg Documented by: Metoprolol Tartrate (Lopressor) 25 mg PO DAILY [facility] Last Admin: 09/30/19 08:29 Dose: 25 mg Documented by: Metoprolol Tartrate (Lopressor) 5 mg IV Q2HP PRN PRN Reason: Tachyarrhythmias HR>110 Last Admin: 09/30/19 02:42 Dose: 5 mg Documented by: Ondansetron HCl (Zofran) 4 mg IV Q4HP PRN PRN Reason: Nausea And Vomiting Polyethylene Glycol (Miralax) 17 gm PO DAILYP PRN PRN Reason: Constipation Potassium Chloride (Kdur) 40 meq PO UD PRN PRN Reason: Potssium is 3-3.5 Potassium Chloride (Kdur) 40 meq PO UD PRN PRN Reason: Potassium < 3 Potassium Chloride (Kdur) 10 meq PO QAMCC [facility] Last Admin: 09/30/19 08:29 Dose: 10 meq Documented by: Senna (Senokot) 2 tab PO HSP PRN PRN Reason: Constipation Sodium Chloride (Saline Flush) 10 ml IV Q8 [facility] Last Admin: 09/30/19 12:04 Dose: 10 ml Documented by: - ABG Interpretation ABG results: 09/27/19 14:39 ABG Methemoglobin 0.3 L VBG pH 7.38 VBG pCO2 59.3 H VBG pO2 82 H VBG HCO3 34.5 H VBG Total CO2 36.3 H VBG O2 Saturation 88.2 H VBG Base Excess 7.9 H Medical - PN: A/P - Time Spent With Patient Total time spent is greater than 50% in coordination of care (as documented) at patient's floor/unit and/or counseling patient: Greater than 35 minutes - Narrative A/P Narrative: 84-year-old female with history of coronary disease, recent CABG in June following NSTEMI, presents with progressive dyspnea. Acute on chronic diastolic CHF (HFpEF) with pulmonary edema and pleural effusions. Suspected complication of recent CABG. Thoracentesis of 1.4 L with bloody fluid at the margin of being hemothorax (pleural hematocrit just less than 50% of systemic hematocrit). Systemic H/H did drift down, though has stabilized. Less concern for ongoing bleed, though it is on the side where she fell against a piece of furniture. No evidence of rib fracture or other trauma on CT scan. Discussed the findings of the thoracentesis with Dr. Matos, on-call cardiology at [place] on 09/27. Echocardiogram with preserved ejection fraction. Hemoglobin pending today 09/30 Plan: Continue with Bumex at 2 mg twice daily, continue to follow daily weights, intake and output Follow up today's H/H If hemoglobin stable today, resume anticoagulation for atrial fibrillation Anticipate about 2 more days of diuresis and reinstituting antiplate let/anticoagulants and monitoring for stability Acute hypoxic/hypercapnic respiratory failure presentation, now with hypoxic respiratory failure. Continues to improve. Secondary to pleural effusions and congestive heart failure. Requiring 0-2 L nasal cannula on 09/30. Counseled extensively on use of incentive spirometer and a frequent manner to strengthen inspiratory effort Plan: Continue to wean oxygen as able. Continue with diuresis. Emphasize pulmonary toilet CAD with recent CABG x2: at [place]. No current chest symptoms. Preserved ejection fraction on echocardiogram this admission. Plan: Continue medication regimen; resume Plavix today if hemoglobin stable. PAF with RVR. Intermittent bouts of paroxysmal A. fib after admission to the hospital. Generally self-limited. However has required doses of intravenous rate controlling agents the last 2 days. Plan: Continue to PCU status on monitor, continue beta-aman and amiodarone. Likely resume Eliquis later today. HTN/HLD. Stable. Plan: Continue home medications. Hypothyroidism. On supplement. Plan: Continue home meds. -pt/ot -ppx: Resume Eliquis today if hemoglobin remains stable Medical - PN: Qual - VTE Deep Vein Thrombosis/Pulmonary Embolism Present on Admission: No
[2019-09-30 14:03] LABS: Basophils # (Auto) 0 K/mcL (0.0-0.3); Basophils % (Auto) 0.3 % (0.0-2.0); Eosinophils # (Auto) 0 K/mcL (0.0-0.7); Eosinophils % (Auto) 0.5 % (0.0-7.0); Granulocytes % (Auto) 56.9 % (38.0-78.0); Hematocrit 33.6 % (36.0-48.0); Hemoglobin 10.9 g/dL (12.0-15.0); Lymphocytes # (Auto) 1.1 K/mcL (1.5-4.8); Lymphocytes % (Auto) 29.5 % (15.5-49.0); Mean Cell Volume 90.8 fL (80.0-100.0); Mean Corpuscular HGB Conc 32.4 g/dL (31.0-36.0); Mean Platelet Volume 7.2 fL (7.4-10.4); Monocytes # (Auto) 0.5 K/mcL (0.1-0.9); Monocytes % (Auto) 12.8 % (1.0-12.0); Platelet Count 204 K/mcL (140-440); Red Cell Distribution Width 19.6 % (11.5-14.5); WBC 3.8 K/mcL (4.5-11.0)
[2019-09-30] MEDS ORDERED: APIXABAN 5 MG TABLET PO SCH (21:00)
[2019-10-01] MEDS: 0.9 % SODIUM CHLORIDE 10 ML SYRINGE IV SCH ×3 (05:35→21:10)
[2019-10-01 06:12] LABS: Hematocrit 32.6 % (36.0-48.0); Hemoglobin 10.7 g/dL (12.0-15.0)
[2019-10-01 06:29] LABS: Blood Urea Nitrogen 17 mg/dl (8-23); Carbon Dioxide 37 mmol/L (22-30); Chloride 93 mmol/L (96-108); Glomerular Filtration Rate 85; Glucose 121 mg/dL (70-105)
[2019-10-01] MEDS: LEVOTHYROXINE 100 MCG TABLET PO SCH (06:53)
[2019-10-01] MEDS: APIXABAN 5 MG TABLET PO SCH ×2 (08:36→21:09)
[2019-10-01] MEDS: AMIODARONE HCL 200 MG TABLET PO SCH (08:36)
[2019-10-01] MEDS: METOPROLOL TARTRATE 25 MG TABLET PO SCH ×2 (08:36→21:09)
[2019-10-01] MEDS: ATORVASTATIN 40 MG TABLET PO SCH (08:36)
[2019-10-01] MEDS: LOSARTAN 25 MG TABLET PO SCH (08:38)
[2019-10-01] MEDS: POTASSIUM CHLORIDE 10 MEQ TABLET PO SCH (08:38)
[2019-10-01] MEDS: DOCUSATE SODIUM 100 MG CAPSULE PO SCH ×2 (08:38→21:11)
[2019-10-01] MEDS: BUMETANIDE 0.25 MG/ML VIAL IV SCH (08:39)
[2019-10-01] MEDS: cefTRIAXone 1 GM VIAL IV SCH (08:50)
[2019-10-01] MEDS ORDERED: CLOPIDOGREL 75 MG TABLET PO SCH (09:00)
--- NOTE | 2019-10-01 10:58 | Internal Med Progress Note ---
Medical - PN: Subj Patient information: Note initiated : 10/01/19 at 10:51 am Service Date, if different from initiated Date: [] Patient: Emily Gay a 84 y/o F admitted on 09/27/19 for Rib Pain, SOB. Chief Complaint: Follow-up CHF Interval history: 09/27, Presentation Ms. Gay is a 84 year old F Who presents the ED with shortness of breath. History obtained from patient as well as her son. Sounds like her most recent medical issues started when she had a right knee replacement and then a week later had a non-STEMI. Subsequently had a a coronary artery bypass graft x2 vessel at [facility] and was hospitalized for several weeks. She has been doing okay until about 5 days ago her son states that he thought she caught a "bug". More labored since then. Yesterday she became weak and fell over and EMS arrived and found to be hypoxic gave her some breathing treatments and her oxygen seemed to improve. Today however she was very weak and could not get out of bed and appeared more short of breath and thus was brought in the ED. In the ED she was found to be CHF with a large effusions worse on the right and A. fib RVR. She was hypoxic and hypercapnic. Case discussed with her manager private in [facility] who felt it was likely complication from surgery but felt patient did not need to be transferred. Just recommended thoracentesis diuresis and starting on anticoagulation. I saw her in the ED her rhythm had converted to sinus. She is on BiPAP and tolerating it well. She complains of the shortness of breath and she is also had a cough of clear sputum with clear sinus drainage. 09/28 Continues to feel pretty well this morning. Hemoglobin drifted down overnight, then has come back up into the mid 10 range. Remains on some oxygen. Continues to diuresis. Some mild reaccumulation of pleural fluid on chest x-ray. No hemoptysis. 09/29 Some diuresis, down to 2 L nasal cannula. Her son was wondering why she was not on BiPAP because she has difficulty taking a deep breath. She tells me she has had difficulty taking a deep inspiratory effort for years, predating her CABG. No evidence of progressive hypercapnia necessitating BiPAP. Pain on the right side of her chest from the fall is improving. Hemoglobin is generally been stable. 09/30 Change to 1 mg of Bumex yesterday afternoon, still not with great diuresis. Received 2 mg this morning. However slowly improving, now off of oxygen. Patient still with twinges of pain on the right from the fall. No hemoptysis. Her son was wondering whether or not BiPAP could be used to help with her inspiratory effort, she has had poor inspiratory effort on incentive spirometer since her surgery in June. Witnessing her I-S use, she tends not to put in a lot of effort and stop inspiration prematurely. I coached her, and advised her son that primarily strengthening the muscles responsible for respiration be the primary treatment for her shallow breathing. We could consider a trial of CPAP at night to see if that may help as well but in general BiPAP was not indicated for low tidal volumes. 10/01 Doing well this morning. Remains on 2 mg of Bumex twice daily. According to I/O, down about 4.5 L. Was off of oxygen with saturations low 90s most of the day yesterday. However desat'ed overnight and required oxygen. Query whether there is a component of sleep apnea, trial of CPAP may be useful at night. Chest pain on the right from fall continues to slowly improve. Had one bout of A. fib overnight. Otherwise remains in sinus rhythm. - Constitutional Vitals: Vital Signs Temp Pulse Resp BP Pulse Ox 99.4 F H 66 20 114/48 95 10/01/19 09:37 10/01/19 02:28 10/01/19 06:40 10/01/19 09:37 10/01/19 09:37 Period Temp Pulse Resp BP Sys/Madrid Pulse Ox Last 24 Hr 98.3 F-99.7 F 65-79 17-20 95-131/41-64 71-98 Intake and Output 09/30/19 10/01/19 10/01/19 22:59 05:59 13:59 Intake Total Output Total 150 Balance -150 Weight Intake & Output: Intake & Output 09/30/19 10/01/19 10/01/19 22:59 05:59 13:59 Intake Total Output Total 150 Balance -150 Weight Intake: Oral Output: Urine Catheter Amount 150 Other: Meal Breakfast Percent of Meal Consumed 100% Urine Appearance Clear Uretheral (Curry) Urine Color Pale Uretheral (Curry) Urine Odor Normal Stool Size Stool Color Stool Consistency # Bowel Movements Exam: General: Sitting up in bed, looks well Chest: Better aeration continues without rales at the bases. Cardiovascular: Regular, 1+ edema Abdomen: Soft Neuro: Alert, oriented, ambulating with PT and nursing Medical - PN: Obj Da - Labs CBC & Chem 7: 10/01/19 04:03 10/01/19 04:03 Labs: Abnormal Lab Results 10/01/19 10/01/19 09/30/19 04:03 04:03 08:05 WBC 3.8 L RBC 3.70 L Hgb 10.7 L 10.9 L Hct 32.6 L 33.6 L RDW 19.6 H MPV 7.2 L Pickett % (Auto) 12.8 H Lymph # (Auto) 1.1 L Chloride 93 L Carbon Dioxide 37 H Anion Gap BUN Glucose 121 H 09/30/19 09/29/19 09/29/19 08:03 04:00 04:00 WBC 4.1 L RBC 3.38 L Hgb 10.0 L Hct 30.8 L RDW 20.1 H MPV 7.3 L Pickett % (Auto) 14.4 H Lymph # (Auto) 1.1 L Chloride 90 L 95 L Carbon Dioxide 39 H 34 H Anion Gap 7.0 L BUN 25 H Glucose 131 H 126 H Meds: Medications Acetaminophen (Tylenol) 650 mg PO Q6HP PRN PRN Reason: PAIN/FEVER > 101 Last Admin: 09/30/19 16:56 Dose: 650 mg Documented by: Albuterol/Ipratropium (Duoneb) 3 ml NEB Q4HP PRN PRN Reason: Shortness Of Breath Amiodarone HCl (Cordarone) 100 mg PO [facility] Last Admin: 10/01/19 08:36 Dose: 100 mg Documented by: Apixaban (Eliquis) 5 mg PO BID [facility] Last Admin: 10/01/19 08:36 Dose: 5 mg Documented by: Atorvastatin Calcium (Lipitor) 40 mg PO DAILY [facility] Last Admin: 10/01/19 08:36 Dose: 40 mg Documented by: Bumetanide (Bumex) 2 mg IV BIDD [facility] Last Admin: 10/01/19 08:39 Dose: 2 mg Documented by: Ceftriaxone Sodium (Rocephin) 1 gm IV Q24H [facility]; Protocol Last Admin: 10/01/19 08:50 Dose: 1 gm Documented by: Clopidogrel Bisulfate (Plavix) 75 mg PO DAILY [facility] Last Admin: 10/01/19 08:35 Dose: 75 mg Documented by: Diltiazem HCl (Cardizem) 10 mg IV Q2H PRN PRN Reason: Tachyarrhythmias Last Admin: 09/30/19 00:47 Dose: 10 mg Documented by: Docusate Sodium (Colace) 100 mg PO BID [facility] Last Admin: 10/01/19 08:38 Dose: 100 mg Documented by: Potassium Chloride 40 meq/ (Dextrose) 520 mls @ 130 mls/hr IV UD PRN PRN Reason: Potassium < 3 Magnesium Sulfate (Magnesium Sulfate) 2 gm in 50 mls @ 50 mls/hr IV UD PRN PRN Reason: Magnesium </= 1.6 Levothyroxine Sodium (Synthroid) 100 mcg PO ACB [facility] Last Admin: 10/01/19 06:53 Dose: 100 mcg Documented by: Losartan Potassium (Cozaar) 25 mg PO DAILY [facility] Last Admin: 10/01/19 08:38 Dose: 25 mg Documented by: Magnesium Oxide (Magnesium Oxide) 400 mg PO DAILY@1200 [facility] Last Admin: 09/30/19 12:04 Dose: 400 mg Documented by: Metoprolol Tartrate (Lopressor) 25 mg PO DAILY [facility] Last Admin: 10/01/19 08:36 Dose: 25 mg Documented by: Metoprolol Tartrate (Lopressor) 5 mg IV Q2HP PRN PRN Reason: Tachyarrhythmias HR>110 Last Admin: 09/30/19 21:50 Dose: 5 mg Documented by: Ondansetron HCl (Zofran) 4 mg IV Q4HP PRN PRN Reason: Nausea And Vomiting Polyethylene Glycol (Miralax) 17 gm PO DAILYP PRN PRN Reason: Constipation Potassium Chloride (Kdur) 40 meq PO UD PRN PRN Reason: Potssium is 3-3.5 Potassium Chloride (Kdur) 40 meq PO UD PRN PRN Reason: Potassium < 3 Potassium Chloride (Kdur) 10 meq PO QAMCC [facility] Last Admin: 10/01/19 08:38 Dose: 10 meq Documented by: Senna (Senokot) 2 tab PO HSP PRN PRN Reason: Constipation Sodium Chloride (Saline Flush) 10 ml IV Q8 [facility] Last Admin: 10/01/19 05:35 Dose: 10 ml Documented by: - ABG Interpretation ABG results: 09/27/19 14:39 ABG Methemoglobin 0.3 L VBG pH 7.38 VBG pCO2 59.3 H VBG pO2 82 H VBG HCO3 34.5 H VBG Total CO2 36.3 H VBG O2 Saturation 88.2 H VBG Base Excess 7.9 H Medical - PN: A/P - Time Spent With Patient Total time spent is greater than 50% in coordination of care (as documented) at patient's floor/unit and/or counseling patient: 25 - 35 minutes - Narrative A/P Narrative: 84-year-old female with history of coronary disease, recent CABG in June following NSTEMI, presents with progressive dyspnea. Acute on chronic diastolic CHF (HFpEF) with pulmonary edema and pleural e ffusions. Suspected complication of recent CABG. Thoracentesis of 1.4 L with bloody fluid at the margin of being hemothorax (pleural hematocrit just less than 50% of systemic hematocrit). Systemic H/H did drift down, though has stabilized. Less concern for ongoing bleed, though it is on the side where she fell against a piece of furniture. No evidence of rib fracture or other trauma on CT scan. Discussed the findings of the thoracentesis with Dr. Matos, on-call cardiology at [facility] on 09/27. Echocardiogram with preserved ejection fraction. Hemoglobin stable the past 48 hours Plan: Continue with Bumex at 2 mg twice daily, continue to follow daily weights, intake and output Continue with anticoagulation for A. fib, resumed yesterday Anticipate probably 1 more day of diuresis Monitoring for stability after reinstituting antiplatelet/anticoagulants Transferred to med/surg status Acute hypoxic/hypercapnic respiratory failure presentation, now with hypoxic respiratory failure. Improved/stable. Secondary to pleural effusions and congestive heart failure. Requiring 0-2 L nasal cannula during daytime on 09/30 and 10/01. Counseled extensively on use of incentive spirometer and a frequent manner to strengthen inspiratory effort. Plan: Continue to wean oxygen as able. Continue with diuresis. Emphasize pulmonary toilet. May benefit from CPAP trial for nighttime hypoxemia. May require home oxygen, particularly at night, upon discharge CAD with recent CABG x2: at [facility]. No current chest symptoms. Preserved ejection fraction on echocardiogram this admission. Plan: Continue medication regimen; resumed Plavix 09/30, hemoglobin stable. PAF with RVR. Intermittent bouts of paroxysmal A. fib after admission to the hospital. Generally self-limited. Becoming less frequent as diuresis continues and likely improvement in the left atrial stretch. Required 1 dose of IV rate controlling agent. Eliquis resumed yesterday, hemoglobin stable Plan: Transfer to medical status, no monitor, continue beta-aman and amiodarone and Eliquis. HTN/HLD. Stable. Plan: Continue home medications. Hypothyroidism. On supplement. Plan: Continue home meds. -pt/ot -ppx: Eliquis Medical - PN: Qual - VTE Deep Vein Thrombosis/Pulmonary Embolism Present on Admission: No
[2019-10-01] MEDS ORDERED: SENNOSIDES 1 TABLET PO PRN (11:12)
[2019-10-01] MEDS ORDERED: IPRATROPIUM/ALBUTEROL 3 ML AMPUL.NEB NEB PRN (11:12)
[2019-10-01] MEDS ORDERED: ONDANSETRON 4 MG/2 ML VIAL IV PRN (11:12)
[2019-10-01] MEDS ORDERED: POLYETHYLENE GLYCOL 3350 17 GM PACKET PO PRN (11:12)
[2019-10-01] MEDS ORDERED: MAGNESIUM SULFATE 2 GM/50 ML BAG IV PRN (11:12)
[2019-10-01] MEDS ORDERED: POTASSIUM CHLORIDE 20 MEQ TABLET PO PRN ×2 (11:12)
[2019-10-01] MEDS: MAGNESIUM OXIDE 400 MG TABLET PO SCH (11:19)
[2019-10-01] MEDS: ACETAMINOPHEN 325 MG TABLET PO PRN ×2 (11:37→21:09)
--- NOTE | 2019-10-01 14:16 | Internal Med Progress Note ---
Medical - PN: Subj Patient information: Note initiated : 10/01/19 at 2:10 pm Service Date, if different from initiated Date: [] Patient: Emiyl Gay a 84 y/o F admitted on 09/27/19 for Rib Pain, SOB. Chief Complaint: [] Interval history: 09/27, Presentation Ms. Gay is a 84 year old F Who presents the ED with shortness of breath. History obtained from patient as well as her son. Sounds like her most recent medical issues started when she had a right knee replacement and then a week later had a non-STEMI. Subsequently had a a coronary artery bypass graft x2 vessel at [facility] and was hospitalized for several weeks. She has been doing okay until about 5 days ago her son states that he thought she caught a "bug". More labored since then. Yesterday she became weak and fell over and EMS arrived and found to be hypoxic gave her some breathing treatments and her oxygen seemed to improve. Today however she was very weak and could not get out of bed and appeared more short of breath and thus was b rought in the ED. In the ED she was found to be CHF with a large effusions worse on the right and A. fib RVR. She was hypoxic and hypercapnic. Case discussed with her children's entertainer in [facility] who felt it was likely complication from surgery but felt patient did not need to be transferred. Just recommended thoracentesis diuresis and starting on anticoagulation. I saw her in the ED her rhythm had converted to sinus. She is on BiPAP and tolerating it well. She complains of the shortness of breath and she is also had a cough of clear sputum with clear sinus drainage. 09/28 Continues to feel pretty well this morning. Hemoglobin drifted down overnight, then has come back up into the mid 10 range. Remains on some oxygen. Continues to diuresis. Some mild reaccumulation of pleural fluid on chest x-ray. No hemoptysis. 09/29 Some diuresis, down to 2 L nasal cannula. Her son was wondering why she was not on BiPAP because she has difficulty taking a deep breath. She tells me she has had difficulty taking a deep inspiratory effort for years, predating her CABG. No evidence of progressive hypercapnia necessitating BiPAP. Pain on the right side of her chest from the fall is improving. Hemoglobin is generally been stable. 09/30 Change to 1 mg of Bumex yesterday afternoon, still not with great diuresis. Received 2 mg this morning. However slowly improving, now off of oxygen. Sridhar rahman still with twinges of pain on the right from the fall. No hemoptysis. Her son was wondering whether or not BiPAP could be used to help with her inspiratory effort, she has had poor inspiratory effort on incentive spirometer since her surgery in June. Witnessing her I-S use, she tends not to put in a lot of effort and stop inspiration prematurely. I coached her, and advised her son that primarily strengthening the muscles responsible for respiration be the primary treatment for her shallow breathing. We could consider a trial of CPAP at night to see if that may help as well but in general BiPAP was not indicated for low tidal volumes. 10/01 Doing well this morning. Remains on 2 mg of Bumex twice daily. According to I/O, down about 4.5 L. Was off of oxygen with saturations low 90s most of the day yesterday. However desat'ed overnight and required oxygen. Query whether there is a component of sleep apnea, trial of CPAP may be useful at night. Chest pain on the right from fall continues to slowly improve. Had one bout of A. fib overnight. Otherwise remains in sinus rhythm. - Constitutional Vitals: Vital Signs Temp Pulse Resp BP Pulse Ox 99.4 F H 66 20 114/48 95 10/01/19 09:37 10/01/19 02:28 10/01/19 06:40 10/01/19 09:37 10/01/19 09:37 Period Temp Pulse Resp BP Sys/Madrid Pulse Ox Last 24 Hr 98.3 F-99.6 F 65-79 17-20 108-131/46-64 71-98 Intake and Output 10/01/19 10/01/19 10/01/19 05:59 13:59 21:59 Intake Total 480 Output Total 150 Balance 330 Intake & Output: Intake & Output 10/01/19 10/01/19 10/01/19 05:59 13:59 21:59 Intake Total 480 Output Total 150 Balance 330 Intake: Oral 480 Output: Urine Catheter Amount 150 Other: Meal Lunch Percent of Meal Consumed 100% Feeding Ability Independent Urine Appearance Clear Uretheral (Curry) Urine Color Pale Uretheral (Curry) Urine Odor Normal Exam: General: Alert, Awake, No acute Distress Eyes/N/T: EOMI, Head/Neck: neck supple, CV: RRR, No murmurs, Pulm: Better aeration continues without rales at bases, no wheezing Abd: soft, nontender, +BS x4 Ext: no clubbing/cyanosis, b/l LE 1+ edema Neuro: Alert, no focal deficits, moves all extremities, Skin: warm/dry Medical - PN: Obj Da - Labs CBC & Chem 7: 10/01/19 04:03 10/01/19 04:03 Labs: Abnormal Lab Results 10/01/19 10/01/19 09/30/19 04:03 04:03 08:05 WBC 3.8 L RBC 3.70 L Hgb 10.7 L 10.9 L Hct 32.6 L 33.6 L RDW 19.6 H MPV 7.2 L Harlan % (Auto) 12.8 H Lymph # (Auto) 1.1 L Chloride 93 L Carbon Dioxide 37 H Anion Gap BUN Glucose 121 H 09/30/19 09/29/19 09/29/19 08:03 04:00 04:00 WBC 4.1 L RBC 3.38 L Hgb 10.0 L Hct 30.8 L RDW 20.1 H MPV 7.3 L Harlan % (Auto) 14.4 H Lymph # (Auto) 1.1 L Chloride 90 L 95 L Carbon Dioxide 39 H 34 H Anion Gap 7.0 L BUN 25 H Glucose 131 H 126 H Meds: Medications Acetaminophen (Tylenol) 650 mg PO Q6HP PRN PRN Reason: PAIN/FEVER > 101 Last Admin: 10/01/19 11:37 Dose: 650 mg Documented by: Albuterol/Ipratropium (Duoneb) 3 ml NEB Q4HP PRN PRN Reason: Shortness Of Breath [facility] Apixaban (Eliquis) 5 mg PO BID [facility] Atorvastatin Calcium (Lipitor) 40 mg PO DAILY [facility] Bumetanide (Bumex) 2 mg IV BIDD [facility] Ceftriaxone Sodium (Rocephin) 1 gm IV DAILY [facility]; Protocol Clopidogrel Bisulfate (Plavix) 75 mg PO DAILY [facility] Docusate Sodium (Colace) 100 mg PO BID [facility] Magnesium Sulfate (Magnesium Sulfate) 2 gm in 50 mls @ 50 mls/hr IV UD PRN PRN Reason: Magnesium </= 1.6 Levothyroxine Sodium (Synthroid) 100 mcg PO ACB [facility] Losartan Potassium (Cozaar) 25 mg PO DAILY [facility] Magnesium Oxide (Magnesium Oxide) 400 mg PO DAILY@1200 [facility] Last Admin: 10/01/19 11:19 Dose: 400 mg Documented by: Metoprolol Tartrate (Lopressor) 25 mg PO BID [facility] Ondansetron HCl (Zofran) 4 mg IV Q4HP PRN PRN Reason: Nausea And Vomiting Polyethylene Glycol (Miralax) 17 gm PO DAILYP PRN PRN Reason: Constipation Potassium Chloride (Kdur) 40 meq PO UD PRN PRN Reason: Potssium is 3-3.5 Potassium Chloride (Kdur) 40 meq PO UD PRN PRN Reason: Potassium < 3 Potassium Chloride (Kdur) 10 meq PO QAC [facility] Senna (Senokot) 2 tab PO HSP PRN PRN Reason: Constipation Sodium Chloride (Saline Flush) 10 ml IV Q8 [facility] Last Admin: 10/01/19 13:20 Dose: 10 ml Documented by: - ABG Interpretation ABG results: 09/27/19 14:39 ABG Methemoglobin 0.3 L VBG pH 7.38 VBG pCO2 59.3 H VBG pO2 82 H VBG HCO3 34.5 H VBG Total CO2 36.3 H VBG O2 Saturation 88.2 H VBG Base Excess 7.9 H Medical - PN: A/P - Time Spent With Patient Total time spent is greater than 50% in coordination of care (as documented) at patient's floor/unit and/or counseling patient: - Narrative A/P Narrative: A: *Acute on chronic diastolic CHF w/pulmonary edema & pleural effusions: Suspected complication of recent CABG -Thoracentesis of 1.4 L with bloody fluid at the margin of being hemothorax (pleural hematocrit just less than 50% of systemic hematocrit). -Systemic H/H did drift down, though has stabilized. Less concern for ongoing bleed, though it is on the side where she fell against a piece of f urniture. -No evidence of rib fracture or other trauma on CT scan -Discussed the findings of thoracentesis with Dr. Matos, on-call cardiology @[facility] on 09/27. Echocardiogram with preserved ejection fraction. -Hemoglobin stable the past 48 hours *Acute hypoxic/hypercapnic respiratory failure: Improved/stable. 2/2 pleural effusions and congestive heart failure. -Requiring 0-2 L nasal cannula during daytime -Counseled extensively on use of incentive spirometer and a frequent manner to strengthen inspiratory effort. *UTI: *CAD w/recent CABG x2: at [facility]. No current chest symptoms. Preserved ejection fraction on echocardiogram this admission. *PAF w/RVR. Intermittent bouts of paroxysmal A. fib after admission to the hospital. Generally self-limited. Becoming less frequent as diuresis continues and likely improvement in the left atrial stretch. -Required 1 dose of IV rate controlling agent. *HTN/HLD. Stable. *Hypothyroidism. On supplement. Plan: -continue with Bumex at 2 mg twice daily, continue to follow daily weights, intake and output. Anticipate probably 1 more day of diuresis Continue with anticoagulation for A. fib, resumed yesterday Monitoring for stability after reinstituting antiplatelet/anticoagulants Continue to wean oxygen as able. Emphasize pulmonary toilet. May benefit from CPAP trial for nighttime hypoxemia. May require home oxygen, particularly at night, upon discharge -Rocephin -f/u with cardio/CT surgeon outpt -resumed plavix -cont BB/Amio -pt/ot -ppx: Eliquis Medical - PN: Qual - VTE Deep Vein Thrombosis/Pulmonary Embolism Present on Admission: No
[2019-10-01] MEDS ORDERED: acetaZOLAMIDE SOD 500 MG VIAL IV ONE (15:38)
[2019-10-01] MEDS ORDERED: HYDROCHLOROTHIAZIDE 12.5 MG CAPSULE PO ONE (15:38)
[2019-10-01] MEDS ORDERED: METOPROLOL TARTRATE 5 MG/5 ML VIAL IV PRN (15:42)
[2019-10-01] MEDS ORDERED: BUMETANIDE 0.25 MG/ML VIAL IV SCH (16:00)
[2019-10-02] MEDS: 0.9 % SODIUM CHLORIDE 10 ML SYRINGE IV SCH ×3 (04:22→21:36)
[2019-10-02 06:52] LABS: Hematocrit 33.6 % (36.0-48.0)
[2019-10-02 07:07] LABS: Blood Urea Nitrogen 16 mg/dl (8-23); Calcium 9.1 mg/dl (8.6-10.4); Carbon Dioxide 35 mmol/L (22-30); Chloride 94 mmol/L (96-108); Glomerular Filtration Rate 81; Glucose 134 mg/dL (70-105)
[2019-10-02] MEDS ORDERED: BUMETANIDE 0.25 MG/ML VIAL IV SCH (08:00)
[2019-10-02] MEDS ORDERED: POTASSIUM CHLORIDE 20 MEQ TABLET PO ONE (08:01)
--- NOTE | 2019-10-02 08:03 | Internal Med Progress Note ---
Medical - PN: Subj Patient information: Note initiated : 10/02/19 at 7:57 am Service Date, if different from initiated Date: [] Patient: Emily Gay 84 y/o F admitted on 09/27/19 for Rib Pain, SOB. Chief Complaint: [] Interval history: 09/27, Presentation Ms. Gay is a 84 year old F Who presents the ED with shortness of breath. History obtained from patient as well as her son. Sounds like her most recent medical issues started when she had a right knee replacement and then a week later had a non-STEMI. Subsequently had a a coronary artery bypass graft x2 vessel at [place] and was hospitalized for several weeks. She has been doing okay until about 5 days ago her son states that he thought she caught a "bug". More labored since then. Yesterday she became weak and fell over and EMS arrived and found to be hypoxic gave her some breathing treatments and her oxygen seemed to improve. Today however she was very weak and could not get out of bed and appeared more short of breath and thus was b rought in the ED. In the ED she was found to be CHF with a large effusions worse on the right and A. fib RVR. She was hypoxic and hypercapnic. Case discussed with her regulatory submissions associate in [facility] who felt it was likely complication from surgery but felt patient did not need to be transferred. Just recommended thoracentesis diuresis and starting on anticoagulation. I saw her in the ED her rhythm had converted to sinus. She is on BiPAP and tolerating it well. She complains of the shortness of breath and she is also had a cough of clear sputum with clear sinus drainage. 09/28 Continues to feel pretty well this morning. Hemoglobin drifted down overnight, then has come back up into the mid 10 range. Remains on some oxygen. Continues to diuresis. Some mild reaccumulation of pleural fluid on chest x-ray. No hemoptysis. 09/29 Some diuresis, down to 2 L nasal cannula. Her son was wondering why she was not on BiPAP because she has difficulty taking a deep breath. She tells me she has had difficulty taking a deep inspiratory effort for years, predating her CABG. No evidence of progressive hypercapnia necessitating BiPAP. Pain on the right side of her chest from the fall is improving. Hemoglobin is generally been stable. 09/30 Change to 1 mg of Bumex yesterday afternoon, still not with great diuresis. Received 2 mg this morning. However slowly improving, now off of oxygen. Sridhar rahman still with twinges of pain on the right from the fall. No hemoptysis. Her son was wondering whether or not BiPAP could be used to help with her inspiratory effort, she has had poor inspiratory effort on incentive spirometer since her surgery in June. Witnessing her I-S use, she tends not to put in a lot of effort and stop inspiration prematurely. I coached her, and advised her son that primarily strengthening the muscles responsible for respiration be the primary treatment for her shallow breathing. We could consider a trial of CPAP at night to see if that may help as well but in general BiPAP was not indicated for low tidal volumes. 10/01 Doing well this morning. Remains on 2 mg of Bumex twice daily. According to I/O, down about 4.5 L. Was off of oxygen with saturations low 90s most of the day yesterday. However desat'ed overnight and required oxygen. Query whether there is a component of sleep apnea, trial of CPAP may be useful at night. Chest pain on the right from fall continues to slowly improve. Had one bout of A. fib overnight. Otherwise remains in sinus rhythm. 10/02 Refused CPAP trial last night. Actually well on air while awake. She feels like her shortness of breath is essentially back to normal. Occasional cough but no other complaints. Good diuresis. H&H stable. Decrease IV diuretics. Review of Systems: denies headache/fever/chills/nausea/vomiting/chest or abdominal pain/diarrhea. Otherwise see above. - Constitutional Vitals: Vital Signs Temp Pulse Resp BP Pulse Ox 98.0 F 98 H 24 H 119/66 92 10/02/19 04:18 10/02/19 04:18 10/02/19 04:18 10/02/19 04:18 10/02/19 04:18 Period Temp Pulse Resp BP Sys/Madrid Pulse Ox Last 24 Hr 97.3 F-99.4 F 66-98 16-24 101-128/48-66 92-98 Intake and Output 10/01/19 10/02/19 10/02/19 21:59 05:59 13:59 Intake Total 50 Output Total 700 1550 Balance -700 -1500 Weight 99.11 kg Intake & Output: Intake & Output 10/01/19 10/02/19 10/02/19 21:59 05:59 13:59 Intake Total 50 Output Total 700 1550 Balance -700 -1500 Weight 99.11 kg Intake: Oral 50 Output: Urine Catheter Amount 700 1550 Other: Urine Appearance Clear Clear Uretheral (Curry) Clear Urine Color Bright Yellow Bright Yellow Uretheral (Curry) Pale Urine Odor Normal Stool Size Large Stool Color Brown Stool Consistency Soft Formed Exam: General: Alert, Awake, No acute Distress Eyes/N/T: EOMI, Head/Neck: neck supple, CV: RRR, 1/6 SM, Pulm: Better aeration continues, minimal left base rales, no wheezing Abd: soft, nontender, +BS x4 Ext: no clubbing/cyanosis, b/l LE trace edema Neuro: Alert, no focal deficits, moves all extremities, Skin: warm/dry Medical - PN: Obj Da - Labs CBC & Chem 7: 10/02/19 05:25 10/02/19 05:25 Labs: Abnormal Lab Results 10/02/19 10/02/19 10/01/19 05:25 05:25 04:03 WBC RBC Hgb 11.0 L 10.7 L Hct 33.6 L 32.6 L RDW MPV Ellis % (Auto) Lymph # (Auto) Potassium 3.1 L Chloride 94 L Carbon Dioxide 35 H Anion Gap Glucose 134 H 10/01/19 09/30/19 09/30/19 04:03 08:05 08:03 WBC 3.8 L RBC 3.70 L Hgb 10.9 L Hct 33.6 L RDW 19.6 H MPV 7.2 L Ellis % (Auto) 12.8 H Lymph # (Auto) 1.1 L Potassium Chloride 93 L 90 L Carbon Dioxide 37 H 39 H Anion Gap 7.0 L Glucose 121 H 131 H Meds: Medications Acetaminophen (Tylenol) 650 mg PO Q6HP PRN PRN Reason: PAIN/FEVER > 101 Last Admin: 10/01/19 21:09 Dose: 650 mg Documented by: Albuterol/Ipratropium (Duoneb) 3 ml NEB Q4HP PRN PRN Reason: Shortness Of Breath Amiodarone HCl (Cordarone) 100 mg PO QAC [facility] Apixaban (Eliquis) 5 mg PO BID [facility] Last Admin: 10/01/19 21:09 Dose: 5 mg Documented by: Atorvastatin Calcium (Lipitor) 40 mg PO DAILY [facility] Bumetanide (Bumex) 2 mg IV BIDD [facility] Ceftriaxone Sodium (Rocephin) 1 gm IV DAILY [facility]; Protocol Clopidogrel Bisulfate (Plavix) 75 mg PO DAILY [facility] Docusate Sodium (Colace) 100 mg PO BID [facility] Last Admin: 10/01/19 21:11 Dose: Not Given Documented by: Magnesium Sulfate (Magnesium Sulfate) 2 gm in 50 mls @ 50 mls/hr IV UD PRN PRN Reason: Magnesium </= 1.6 Levothyroxine Sodium (Synthroid) 100 mcg PO ACB [facility] Losartan Potassium (Cozaar) 25 mg PO DAILY [facility] Magnesium Oxide (Magnesium Oxide) 400 mg PO DAILY@1200 [facility] Last Admin: 10/01/19 11:19 Dose: 400 mg Documented by: Metoprolol Tartrate (Lopressor) 25 mg PO BID [facility] Last Admin: 10/01/19 21:09 Dose: 25 mg Documented by: Metoprolol Tartrate (Lopressor) 5 mg IV Q2HP PRN PRN Reason: Tachyarrhythmias HR>110 Ondansetron HCl (Zofran) 4 mg IV Q4HP PRN PRN Reason: Nausea And Vomiting Polyethylene Glycol (Miralax) 17 gm PO DAILYP PRN PRN Reason: Constipation Potassium Chloride (Kdur) 40 meq PO UD PRN PRN Reason: Potssium is 3-3.5 Last Admin: 10/01/19 14:34 Dose: 40 meq Documented by: Potassium Chloride (Kdur) 40 meq PO UD PRN PRN Reason: Potassium < 3 Potassium Chloride (Kdur) 10 meq PO [facility] Senna (Senokot) 2 tab PO HSP PRN PRN Reason: Constipation Sodium Chloride (Saline Flush) 10 ml IV Q8 [facility] Last Admin: 10/02/19 04:22 Dose: 10 ml Documented by: - ABG Interpretation ABG results: 09/27/19 14:39 ABG Methemoglobin 0.3 L VBG pH 7.38 VBG pCO2 59.3 H VBG pO2 82 H VBG HCO3 34.5 H VBG Total CO2 36.3 H VBG O2 Saturation 88.2 H VBG Base Excess 7.9 H Medical - PN: A/P - Time Spent With Patient Total time spent is greater than 50% in coordination of care (as documented) at patient's floor/unit and/or counseling patient: - Narrative A/P Narrative: A: *Acute on chronic diastolic CHF w/pulmonary edema & pleural effusions: Suspected complication of recent CABG -Thoracentesis of 1.4 L with bloody fluid at the margin of being hemothorax (pleural hematocrit just less than 50% of systemic hematocrit). -Systemic H/H did drift down, though has stabilized. Less concern for ongoing bleed, though it is on the side where she fell against a piece of furniture. -No evidence of rib fracture or other trauma on CT scan -Discussed the findings of thoracentesis with Dr. Matos, on-call cardiology @[place] on 09/27. Echocardiogram with preserved ejection fraction. -H&H stable *Acute hypoxic/hypercapnic respiratory failure: Improved/stable. 2/2 pleural effusions and congestive heart failure. -now on room air during daytime and 2L@night *UTI(e. coli): *CAD w/recent CABG x2: at [place]. No current chest symptoms. Preserved ejection fraction on echocardiogram this admission. *PAF w/RVR. Intermittent bouts of paroxysmal A. fib after admission to the hospital. Generally self-limited. Becoming less frequent as diuresis continues and likely improvement in the left atrial stretch. - *HTN/HLD. Stable. *Hypothyroidism. On supplement. *hypokalemia: Plan: -transition back to home lasix Continue with anticoagulation for A. fib, resumed Monitoring for stability after reinstituting antiplatelet/anticoagulants Continue to wean oxygen as able. May benefit from CPAP trial for nighttime hypoxemia, refused CPAP. May require home oxygen, particularly at night, upon discharge -Rocephin -f/u with cardio/CT surgeon outpt -cont BB/Amio -pt/ot -Counseled extensively on use of incentive spirometer and a frequent manner to strengthen inspiratory effort. -ppx: Eliquis Medical - PN: Qual - VTE Deep Vein Thrombosis/Pulmonary Embolism Present on Admission: No
[2019-10-02] MEDS: cefTRIAXone 1 GM VIAL IV SCH (09:03)
[2019-10-02] MEDS: METOPROLOL TARTRATE 25 MG TABLET PO SCH ×2 (09:04→21:36)
[2019-10-02] MEDS: POTASSIUM CHLORIDE 10 MEQ TABLET PO SCH (09:04)
[2019-10-02] MEDS: AMIODARONE HCL 200 MG TABLET PO SCH (09:05)
[2019-10-02] MEDS: LOSARTAN 25 MG TABLET PO SCH (09:06)
[2019-10-02] MEDS: ATORVASTATIN 40 MG TABLET PO SCH (09:06)
[2019-10-02] MEDS: LEVOTHYROXINE 100 MCG TABLET PO SCH (09:06)
[2019-10-02] MEDS: APIXABAN 5 MG TABLET PO SCH ×2 (09:07→21:36)
[2019-10-02] MEDS: CLOPIDOGREL 75 MG TABLET PO SCH (09:07)
[2019-10-02] MEDS: DOCUSATE SODIUM 100 MG CAPSULE PO SCH ×2 (09:10→21:36)
[2019-10-02] MEDS: MAGNESIUM OXIDE 400 MG TABLET PO SCH (12:07)
--- NOTE | 2019-10-02 14:24 | Discharge Summary ---
Medical - DS: Prov Patient information: Note initiated : 10/02/19 at 2:22 pm Service Date, if different from initiated Date: [] Patient: Emily Gay 84 y/o F admitted on 09/27/19 for Rib Pain, SOB. Chief Complaint: [] Date of admission: 09/27/19 12:57 Discharge date: 10/03/19 Primary care physician: Homa Payton Consults: 09/27/19 11:21 Consult to Physician [CONS] Stat Comment: Consulting Provider: Lopez Narvaez Reason For Exam: Physician to Consult Medical - DS: Meds - Discharge Medications Active and Home Medications: Home Medications Calcium Citrate/Vitamin D3 [Calcium Citrate - Vit D Tablet] 1 tab PO DAILY 07/06/19 [History Confirmed 09/27/19 Last Taken 07/16/19] Chromium Picolinate 1,000 mcg PO DAILY@1200 07/06/19 [History Confirmed 09/27/19 Last Taken 07/16/19] Ferrous Sulfate 325 mg PO BID 07/06/19 [History Confirmed 09/27/19 Last Taken 07/16/19] Fish Oil/Dha/Epa [Fish Oil 1,200 mg Fish Oil] 1 cap PO DAILY@1200 07/06/19 [H istory Confirmed 09/27/19 Last Taken 07/03/19] Levothyroxine [Synthroid] 100 mcg PO ACB 07/06/19 [History Confirmed 09/27/19 Last Taken 07/17/19] Magnesium Oxide [Magnesium] 400 mg PO DAILY@1200 07/06/19 [History Confirmed 09/27/19 Last Taken 07/16/19] Multivit-Min/FA/Lycopen/Lutein [Centrum Silver Tablet] 1 tab PO DAILY@1200 07/06/19 [History Confirmed 09/27/19 Last Taken 07/16/19] Potassium Gluconate 99 mg PO DAILY@1200 07/06/19 [History Confirmed 09/27/19 Last Taken 07/16/19] Ubidecarenone [Coq-10] 100 mg PO DAILY@1200 07/06/19 [History Confirmed 09/27/19 Last Taken 07/03/19] Vitamin D3 400 unit PO DAILY@1200 07/06/19 [History Confirmed 09/27/19 Last Taken 07/16/19] Vitamin E (Dl,Tocopheryl Acet) [Vitamin E] 400 unit PO DAILY@1200 07/06/19 [History Confirmed 09/27/19 Last Taken 07/03/19] Cannabidiol (Cbd) Extract [Epidiolex] 0.0625 appful PO Q4HP PRN 07/20/19 [History Confirmed 09/27/19 Last Taken Unknown] Amiodarone HCl [Pacerone] 100 mg PO DAILY 09/27/19 [History Confirmed 09/27/19 Last Taken Unknown] Atorvastatin [Lipitor] 40 mg PO DAILY 09/27/19 [History Confirmed 09/27/19 Last Taken Unknown] Clopidogrel Bisulfate 75 mg PO DAILY 09/27/19 [History Confirmed 09/27/19 Last Taken Unknown] Furosemide [Lasix] 20 mg PO DAILY 09/27/19 [History Confirmed 09/27/19 Last Taken Unknown] Losartan Potassium 25 mg PO DAILY 09/27/19 [History Confirmed 09/27/19 Last Taken Unknown] Metoprolol Tartrate [Lopressor] 25 mg PO DAILY 09/27/19 [History Confirmed 09/27/19 Last Taken Unknown] Potassium Chloride [Kdur] 10 meq PO DAILY 09/27/19 [History Confirmed 09/27/19 Last Taken Unknown] guaiFENesin [Mucinex] 1,200 mg PO DAILY 09/27/19 [History Confirmed 09/27/19 Last Taken Unknown] Medical - DS: Hosp Hospital Course: 09/27, Presentation Ms. Gay is a 84 year old F Who presents the ED with shortness of breath. History obtained from patient as well as her son. Sounds like her most recent medical issues started when she had a right knee replacement and then a week later had a non-STEMI. Subsequently had a a coronary artery bypass graft x2 vessel at [place] and was hospitalized for several weeks. She has been doing okay until about 5 days ago her son states that he thought she caught a "bug". More labored since then. Yesterday she became weak and fell over and EMS arrived and found to be hypoxic gave her some breathing treatments and her oxygen seemed to improve. Today however she was very weak and could not get out of bed and appeared more short of breath and thus was brought in the ED. In the ED she was found to be CHF with a large effusions worse on the right and A. fib RVR. She was hypoxic and hypercapnic. Case discussed with her grounds person in [facility] who felt it was likely complication from surgery but felt patient did not need to be transferred. Just recommended thoracentesis diuresis and starting on anticoagulation. I saw her in the ED her rhythm had converted to sinus. She is on BiPAP and tolerating it well. She complains of the shortness of breath and she is also had a cough of clear sputum with clear sinus drainage. 09/28 Continues to feel pretty well this morning. Hemoglobin drifted down overnight, then has come back up into the mid 10 range. Remains on some oxygen. Continues to diuresis. Some mild reaccumulation of pleural fluid on chest x-ray. No hemoptysis. 09/29 Some diuresis, down to 2 L nasal cannula. Her son was wondering why she was not on BiPAP because she has difficulty taking a deep breath. She tells me she has had difficulty taking a deep inspiratory effort for years, predating her CABG. No evidence of progressive hypercapnia necessitating BiPAP. Pain on the right side of her chest from the fall is improving. Hemoglobin is generally been stable. 09/30 Change to 1 mg of Bumex yesterday afternoon, still not with great diuresis. Received 2 mg this morning. However slowly improving, now off of oxygen. Patient still with twinges of pain on the right from the fall. No hemoptysis. Her son was wondering whether or not BiPAP could be used to help with her inspiratory effort, she has had poor inspiratory effort on incentive spirometer since her surgery in June. Witnessing her I-S use, she tends not to put in a lot of effort and stop inspiration prematurely. I coached her, and advised her son that primarily strengthening the muscles responsible for respiration be the primary treatment for her shallow breathing. We could consider a trial of CPAP at night to see if that may help as well but in general BiPAP was not indicated for low tidal volumes. 10/01 Doing well this morning. Remains on 2 mg of Bumex twice daily. According to I/O, down about 4.5 L. Was off of oxygen with saturations low 90s most of the day yesterday. However desat'ed overnight and required oxygen. Query whether there is a component of sleep apnea, trial of CPAP may be useful at night. Chest pain on the right from fall continues to slowly improve. Had one bout of A. fib overnight. Otherwise remains in sinus rhythm. 10/02 Refused CPAP trial last night. Actually well on air while awake. She feels like her shortness of breath is essentially back to normal. Occasional cough but no other complaints. Good diuresis. H&H stable. Decrease IV diuretics. 10/03 No new complaints patient feeling better. Doing well sitting up in chair breathing well on room oxygen. Recommended to her that she would probably benefit from a sleep study. Discharge diagnosis: Acute on chronic diastolic heart failure pulmonary edema pleural effusions Secondary discharge diagnosis: Acute hypoxic hypercapnic respiratory failure E. coli UTI CAD with recent CABG paroxysmal fibrillation with RVR hypertension hypothyroidism - Time Spent with Patient Total time spent providing and/or coordinating discharge services: Greater than 30 minutes Medical - DS: Exam - Constitutional Vitals: Vital Signs Temp Pulse Pulse Resp BP BP Pulse Ox 10/02/19 08:00 98.0 F 75 18 102/53 94 10/02/19 04:18 98.0 F 98 H 24 H 119/66 92 10/01/19 23:13 68 20 95 10/01/19 23:11 97.4 F 66 18 128/66 98 10/01/19 23:10 18 95 10/01/19 19:15 18 10/01/19 18:49 97.3 F 77 18 123/60 92 10/01/19 14:50 98.4 F 71 16 114/49 96 10/01/19 14:34 98.1 F 72 18 101/50 93 Intake and Output 10/02/19 10/02/19 10/02/19 05:59 13:59 21:59 Intake Total 50 Output Total 1550 Balance -1500 Intake: Oral 50 Output: Urine Catheter Amount 1550 Other: Urine Appearance Clear Clear Uretheral (Curry) Clear Mucous Threads Urine Color Bright Yellow Pale Uretheral (Curry) Pale Urine Odor Normal Stool Size Moderate Stool Color Brown Stool Consistency Soft Formed # Bowel Movements 1 Medical - DS: Data Labs on day of discharge: Labs from last 24 hours 10/02/19 10/02/19 05:25 05:25 Hgb 11.0 L Hct 33.6 L Sodium 139 Potassium 3.1 L Chloride 94 L Carbon Dioxide 35 H Anion Gap 10.0 BUN 16 Creatinine 0.7 GFR Calculation 81 Glucose 134 H Calcium 9.1 Medical - DS: A/P - Patient/Caregiver Discharge Instructions Activity: increase activity as tolerated Diet: Cardiac Additional Instructions: Follow-up with [facility] cardiology and 5 to 7 days. Referral to see pulmonology in 7 to 10 days to evaluate for possible need for sleep study - Follow up Plan Follow up with: Homa Payton MD [Primary Care Provider] - Bethel Preciado MD [Physician] - Disposition: Home Health Service Prognosis: Fair Rehab Potential: Fair Overall status at discharge: patient is progressing back to baseline Medical - DS: Qual - VTE Deep Vein Thrombosis/Pulmonary Embolism Present on Admission: No
[2019-10-02] MEDS: ACETAMINOPHEN 325 MG TABLET PO PRN (21:43)
[2019-10-03] MEDS: 0.9 % SODIUM CHLORIDE 10 ML SYRINGE IV SCH ×2 (05:37→15:30)
[2019-10-03] MEDS: LEVOTHYROXINE 100 MCG TABLET PO SCH (06:58)
[2019-10-03] MEDS: AMIODARONE HCL 200 MG TABLET PO SCH (06:58)
[2019-10-03] MEDS: ACETAMINOPHEN 325 MG TABLET PO PRN (07:07)
[2019-10-03 07:32] LABS: Blood Urea Nitrogen 22 mg/dl (8-23); Calcium 9.5 mg/dl (8.6-10.4); Carbon Dioxide 33 mmol/L (22-30); Chloride 94 mmol/L (96-108); Glomerular Filtration Rate 81; Glucose 134 mg/dL (70-105)
[2019-10-03] MEDS ORDERED: FUROSEMIDE 20 MG TABLET PO SCH (09:00)
[2019-10-03] MEDS: cefTRIAXone 1 GM VIAL IV SCH (10:22)
[2019-10-03] MEDS: LOSARTAN 25 MG TABLET PO SCH (10:24)
[2019-10-03] MEDS: CLOPIDOGREL 75 MG TABLET PO SCH (10:24)
[2019-10-03] MEDS: APIXABAN 5 MG TABLET PO SCH (10:24)
[2019-10-03] MEDS: METOPROLOL TARTRATE 25 MG TABLET PO SCH (10:25)
[2019-10-03] MEDS: POTASSIUM CHLORIDE 10 MEQ TABLET PO SCH (10:25)
[2019-10-03] MEDS: ATORVASTATIN 40 MG TABLET PO SCH (10:25)
[2019-10-03] MEDS: DOCUSATE SODIUM 100 MG CAPSULE PO SCH (10:26)
[2019-10-03] MEDS: MAGNESIUM OXIDE 400 MG TABLET PO SCH (11:38)
== END 2019-10-03 16:50 | disposition home health service (06) | DRG 291 ==
LOC: ED 07:41 → ICU 12:57 → MEDSUR 10-01 15:05
PROVIDERS: ADMIT Internal Medicine; ATTEND Internal Medicine

== ENCOUNTER 2024-01-05 08:43 | Inpatient (IN) ==
[2024-01-05] MEDS ORDERED: IOPAMIDOL 100 ML BOTTLE IV ONE (08:44)
[2024-01-05 09:27] LABS: POC Calcium, Ionized 1.16 (1.16-1.32); POC Creatinine 0.6 (0.6-1.2); POC Potassium 3.5 (3.3-5.1)
[2024-01-05 09:54] LABS: Thyroid Stimulating Hormone 5.34 uIU/mL (0.27-5.01)
[2024-01-05 10:09] LABS: Basophils # (Auto) 0.02 K/mcL (0.00-0.30); Basophils % (Auto) 0.5 % (0.0-2.0); Eosinophils # (Auto) 0 K/mcL (0.00-0.70); Eosinophils % (Auto) 0 % (0.0-7.0); Hematocrit 36.9 % (34.1-44.9); Hemoglobin 11.5 g/dL (11.2-15.7); Lymphocytes # (Auto) 0.87 K/mcL (1.50-4.80); Lymphocytes % (Auto) 21.5 % (15.5-49.0); Mean Cell Volume 96.3 fL (80.0-100.0); Mean Corpuscular HGB Conc 31.2 g/dL (31.0-36.0); Monocytes # (Auto) 0.83 K/mcL (0.10-0.90); Monocytes % (Auto) 20.5 % (1.0-12.0); Neutrophils % (Auto) 54.8 % (38.0-78.0); Platelet Count 96 K/mcL (140-440); RBC 3.83 M/mcL (3.59-5.38); Red Cell Distribution Width 16.8 % (11.5-14.5)
[2024-01-05 11:00] LABS: POC INR 1.1 (0.8-1.2); POC Pro Time 12.8 (11.9-14.5)
[2024-01-05 11:33] LABS: Appearance,Urine Cloudy (Clear); Bacteria,Urine Many /hpf (0); Bilirubin,Urine Negative (Negative); Color,Urine Yellow; Culture Indicated,Urine Yes; Glucose,Urine (UA) Negative (Negative); Ketones,Urine Negative (Negative); Leukocyte Esterase,Urine Trace /uL (Negative); Nitrate,Urine Positive (Negative); Protein,Urine 100 mg/dL (Negative); Urine Blood Negative ery/mcL (Negative); Urine RBC 1 /hpf (0-3); Urine Squamous Epithelial Cell 4 /hpf (0-4); Urine WBC 7 /hpf (0-4); Urobilinogen,Urine Normal
[2024-01-05] MEDS: HYDROcodone/APAP 5/325MG TABLET PO ONE (11:34)
[2024-01-05] MEDS: FUROSEMIDE 20 MG/2 ML VIAL IV ONE (13:15)
[2024-01-05] MEDS ORDERED: MAGNESIUM SULFATE 2 GM/50 ML BAG IV PRN (15:21)
[2024-01-05] MEDS ORDERED: LABETALOL HCL 20 MG/4 ML VIAL IV PRN (15:21)
[2024-01-05] MEDS ORDERED: ONDANSETRON 4 MG/2 ML VIAL IV PRN (15:21)
[2024-01-05] MEDS ORDERED: NALOXONE HCL 0.4 MG/ML VIAL IV PRN (15:21)
[2024-01-05] MEDS ORDERED: SENNOSIDES 1 TABLET PO PRN (15:21)
[2024-01-05] MEDS ORDERED: POTASSIUM CHLORIDE 40 MEQ in DEXTROSE 5% IN WATER 500 ML IV PRN (15:21)
[2024-01-05] MEDS ORDERED: METOPROLOL TARTRATE 5 MG/5 ML VIAL IV PRN (15:21)
[2024-01-05] MEDS: cefTRIAXone 1 GM VIAL IV SCH (16:24)
[2024-01-05] MEDS: FUROSEMIDE 40 MG/4 ML VIAL IV SCH (16:24)
[2024-01-05] MEDS: HYDROcodone/APAP 5/325MG TABLET PO PRN (16:24)
[2024-01-05] MEDS: POTASSIUM CHLORIDE 20 MEQ TABLET PO PRN (16:24)
[2024-01-05] MEDS: LABETALOL 5 MG/ML ML IV PRN (16:38)
[2024-01-05] MEDS: 0.9 % SODIUM CHLORIDE 10 ML SYRINGE IV SCH (19:27)
[2024-01-05] MEDS: ENALAPRILAT 1.25 MG/ML VIAL IV PRN (19:27)
[2024-01-05] MEDS: DOCUSATE SODIUM 100 MG CAPSULE PO SCH (20:11)
[2024-01-06] MEDS: IPRATROPIUM/ALBUTEROL 3 ML AMPUL.NEB NEB PRN (00:23)
[2024-01-06 05:50] LABS: Basophils # (Auto) 0.01 K/mcL (0.00-0.30); Basophils % (Auto) 0.2 % (0.0-2.0); Eosinophils # (Auto) 0 K/mcL (0.00-0.70); Eosinophils % (Auto) 0 % (0.0-7.0); Hemoglobin 10.6 g/dL (11.2-15.7); Lymphocytes # (Auto) 0.74 K/mcL (1.50-4.80); Lymphocytes % (Auto) 11.4 % (15.5-49.0); Mean Cell Volume 96.3 fL (80.0-100.0); Mean Corpuscular HGB Conc 31.2 g/dL (31.0-36.0); Mean Platelet Volume 11.1 fL (8.8-12.5); Monocytes % (Auto) 18.5 % (1.0-12.0); Neutrophils % (Auto) 69.1 % (38.0-78.0); Platelet Count 92 K/mcL (140-440); RBC 3.53 M/mcL (3.59-5.38); Red Cell Distribution Width 16.8 % (11.5-14.5); WBC 6.5 K/mcL (4.5-11.0)
[2024-01-06 06:08] LABS: ALT/SGPT 7 U/L (<40); AST/SGOT 21 U/L (<32); Albumin 4.2 gm/dL (3.2-5.2); Albumin/Globulin Ratio 1.8 (1.0-2.3); Alkaline Phosphatase 52 U/L (39-117); Bilirubin,Direct 0.3 mg/dL (<0.3); Bilirubin,Total 1.2 mg/dL (0.1-1.0); Blood Urea Nitrogen 14 mg/dL (8-23); Calcium 9.3 mg/dL (8.6-10.4); Carbon Dioxide 28 mmol/L (22-30); Chloride 100 mmol/L (96-108); Globulin 2.3 gm/dL (2.2-3.7); Glomerular Filtration Rate 82; Glucose 128 mg/dL (70-105); Lactate Dehydrogenase 243 U/L (135-225); Phosphorous 4.1 mg/dL (2.5-4.5); Triglycerides 86 mg/dL (<150); Uric Acid 3.7 mg/dL (2.5-8.0)
[2024-01-06 09:10] LABS: Anisocytosis 1+ (None Seen); Lymphocytes % 7 % (15-49); Monocytes % (Manual) 15 % (1-12); Platelet Estimate DECREASED (Normal); RBC Morphology ABNORMAL (Normal); Segmented Neutrophils % 78 % (38-78)
[2024-01-06] MEDS: LOSARTAN 25 MG TABLET PO SCH (09:16)
[2024-01-06] MEDS: METHOCARBAMOL 1,000 MG/10 ML VIAL IV PRN (09:16)
[2024-01-06] MEDS: METOLAZONE 2.5 MG TABLET PO ONE (09:16)
[2024-01-06] MEDS: POLYETHYLENE GLYCOL 3350 17 GM PACKET PO PRN (09:17)
[2024-01-06] MEDS: ENOXAPARIN 40 MG/0.4 ML SYRINGE SQ SCH (09:17)
[2024-01-06 11:57] LABS: HDL Cholesterol 69 mg/dL (>40); LDL Cholesterol,Calculated 93 mg/dL (<100); Non-HDL Cholesterol 111 mg/dL (<130); Triglycerides 92 mg/dL (<150)
[2024-01-06] MEDS: ATORVASTATIN 40 MG TABLET PO SCH (20:35)
[2024-01-07 06:37] LABS: ALT/SGPT 8 U/L (<40); AST/SGOT 26 U/L (<32); Albumin 4.1 gm/dL (3.2-5.2); Albumin/Globulin Ratio 1.8 (1.0-2.3); Alkaline Phosphatase 50 U/L (39-117); Bilirubin,Direct 0.4 mg/dL (<0.3); Bilirubin,Total 1.3 mg/dL (0.1-1.0); Blood Urea Nitrogen 17 mg/dL (8-23); Calcium 9.6 mg/dL (8.6-10.4); Carbon Dioxide 32 mmol/L (22-30); Chloride 96 mmol/L (96-108); Globulin 2.3 gm/dL (2.2-3.7); Glomerular Filtration Rate 78; Glucose 118 mg/dL (70-105); Lactate Dehydrogenase 270 U/L (135-225); Phosphorous 3.7 mg/dL (2.5-4.5); Triglycerides 107 mg/dL (<150); Uric Acid 4.2 mg/dL (2.5-8.0)
[2024-01-07] MEDS: POTASSIUM CHLORIDE 20 MEQ TABLET PO PRN (06:49)
[2024-01-07] MEDS: LEVOTHYROXINE 100 MCG TABLET PO SCH (07:11)
[2024-01-07] MEDS: ASPIRIN 81 MG TAB.CHEW PO SCH (08:14)
[2024-01-07] MEDS: FUROSEMIDE 40 MG/4 ML VIAL IV SCH (16:09)
[2024-01-08 08:21] LABS: Blood Urea Nitrogen 23 mg/dL (8-23); Calcium 9.7 mg/dL (8.6-10.4); Carbon Dioxide 34 mmol/L (22-30); Chloride 92 mmol/L (96-108); Glomerular Filtration Rate 67; Glucose 119 mg/dL (70-105)
== END 2024-01-08 12:14 | DRG 291 ==
LOC: ED 08:43 → ICU 15:05 → MEDSUR 01-07 16:07
PROVIDERS: ADMIT Internal Medicine; ATTEND Internal Medicine

== ENCOUNTER 2024-07-02 14:21 | Inpatient (IN) ==
[2024-07-02] MEDS: HYDROmorphone 0.5 MG/0.5 ML SYRINGE IV ONE ×2 (14:55→19:31)
[2024-07-02] MEDS: HYDROmorphone 0.5 MG/0.5 ML SYRINGE IM ONE ×2 (14:59→19:31)
[2024-07-02] MEDS: ACETAMINOPHEN 325 MG TABLET PO ONE (16:57)
[2024-07-02] MEDS: HYDROcodone/APAP 5/325MG TABLET PO ONE (16:57)
[2024-07-02 19:59] LABS: Hematocrit 31.6 % (34.1-44.9); Hemoglobin 9.9 g/dL (11.2-15.7); Mean Cell Volume 93.5 fL (80.0-100.0); Mean Corpuscular HGB Conc 31.3 g/dL (31.0-36.0); RBC 3.38 M/mcL (3.59-5.38); WBC 12.5 K/mcL (4.5-11.0)
[2024-07-02 20:00] LABS: Basophils # (Auto) 0.07 K/mcL (0.00-0.30); Basophils % (Auto) 0.6 % (0.0-2.0); Eosinophils # (Auto) 0 K/mcL (0.00-0.70); Eosinophils % (Auto) 0 % (0.0-7.0); Lymphocytes % (Auto) 5.6 % (15.5-49.0); Mean Platelet Volume 9.7 fL (8.8-12.5); Monocytes # (Auto) 1.97 K/mcL (0.10-0.90); Monocytes % (Auto) 15.7 % (1.0-12.0); Neutrophils % (Auto) 71.9 % (38.0-78.0); Platelet Count 142 K/mcL (140-440); Red Cell Distribution Width 16.7 % (11.5-14.5)
[2024-07-02 20:16] LABS: ALT/SGPT 10 U/L (<40); AST/SGOT 18 U/L (<32); Albumin 3.8 gm/dL (3.2-5.2); Albumin/Globulin Ratio 1.6 (1.0-2.3); Alkaline Phosphatase 104 U/L (39-117); Bilirubin,Direct 0.3 mg/dL (<0.3); Bilirubin,Total 0.7 mg/dL (0.1-1.0); Blood Urea Nitrogen 8 mg/dL (8-23); Carbon Dioxide 38 mmol/L (22-30); Chloride 91 mmol/L (96-108); Globulin 2.4 gm/dL (2.2-3.7); Glomerular Filtration Rate 103; Glucose 137 mg/dL (70-105); Lactate Dehydrogenase 443 U/L (135-225); Phosphorous 3.6 mg/dL (2.5-4.5); Potassium 3.8 mmol/L (3.3-5.1); Sodium 136 mmol/L (133-145); Triglycerides 79 mg/dL (<150); Uric Acid 2.7 mg/dL (2.5-8.0)
[2024-07-02] MEDS ORDERED: ONDANSETRON 4 MG/2 ML VIAL IV PRN (20:47)
[2024-07-02] MEDS: 0.9 % SODIUM CHLORIDE 10 ML SYRINGE IV SCH (21:19)
[2024-07-02] MEDS: HEPARIN 5,000 UNIT/ML VIAL SQ SCH (21:23)
[2024-07-03] MEDS: ACETAMINOPHEN 325 MG TABLET PO PRN (06:00)
[2024-07-03] MEDS: oxyCODONE IR 5 MG TABLET PO PRN ×2 (06:00→15:43)
[2024-07-03 07:03] LABS: ALT/SGPT < 5 U/L (<40); AST/SGOT 14 U/L (<32); Albumin 3.6 gm/dL (3.2-5.2); Albumin/Globulin Ratio 1.7 (1.0-2.3); Alkaline Phosphatase 78 U/L (39-117); Bilirubin,Direct 0.2 mg/dL (<0.3); Bilirubin,Total 0.6 mg/dL (0.1-1.0); Blood Urea Nitrogen 8 mg/dL (8-23); Calcium 8.9 mg/dL (8.6-10.4); Carbon Dioxide 39 mmol/L (22-30); Chloride 93 mmol/L (96-108); Globulin 2.1 gm/dL (2.2-3.7); Glomerular Filtration Rate 94; Glucose 109 mg/dL (70-105); Lactate Dehydrogenase 177 U/L (135-225); Phosphorous 3.9 mg/dL (2.5-4.5); Potassium 3.5 mmol/L (3.3-5.1); Sodium 138 mmol/L (133-145); Triglycerides 83 mg/dL (<150); Uric Acid 2.9 mg/dL (2.5-8.0)
[2024-07-03 08:19] LABS: Basophils # (Auto) 0.03 K/mcL (0.00-0.30); Basophils % (Auto) 0.4 % (0.0-2.0); Eosinophils # (Auto) 0 K/mcL (0.00-0.70); Eosinophils % (Auto) 0 % (0.0-7.0); Hematocrit 28.8 % (34.1-44.9); Lymphocytes # (Auto) 0.77 K/mcL (1.50-4.80); Lymphocytes % (Auto) 10.1 % (15.5-49.0); Mean Cell Volume 94.1 fL (80.0-100.0); Mean Corpuscular HGB Conc 31.3 g/dL (31.0-36.0); Mean Platelet Volume 10.6 fL (8.8-12.5); Monocytes # (Auto) 1.67 K/mcL (0.10-0.90); Monocytes % (Auto) 21.9 % (1.0-12.0); Neutrophils % (Auto) 62.7 % (38.0-78.0); Platelet Count 124 K/mcL (140-440); RBC 3.06 M/mcL (3.59-5.38); Red Cell Distribution Width 16.6 % (11.5-14.5); WBC 7.6 K/mcL (4.5-11.0)
[2024-07-03] MEDS: LEVOTHYROXINE 150 MCG TABLET PO SCH (08:29)
[2024-07-03] MEDS: CLOPIDOGREL 75 MG TABLET PO SCH (08:30)
[2024-07-03] MEDS: ATORVASTATIN 40 MG TABLET PO SCH (08:30)
[2024-07-03] MEDS: METOPROLOL TARTRATE 25 MG TABLET PO SCH (08:30)
[2024-07-03] MEDS: ASPIRIN 81 MG TAB.CHEW PO SCH (08:30)
[2024-07-03] MEDS: NITROFURANTOIN SR 100 MG CAPSULE PO SCH (08:30)
[2024-07-03] MEDS: LOSARTAN 50 MG TABLET PO SCH (08:30)
[2024-07-03] MEDS ORDERED: morphine 4 MG/ML VIAL IV PRN (14:29)
[2024-07-03] MEDS: SENNOSIDES 1 TABLET PO PRN (19:41)
[2024-07-03] MEDS: FUROSEMIDE 20 MG TABLET PO SCH (22:45)
[2024-07-04 00:51] LABS: Appearance,Urine Cloudy (Clear); Bacteria,Urine Many /hpf (0); Bilirubin,Urine Negative (Negative); Color,Urine Yellow; Culture Indicated,Urine Yes; Glucose,Urine (UA) Negative (Negative); Ketones,Urine Negative (Negative); Leukocyte Esterase,Urine Large /uL (Negative); Nitrate,Urine Positive (Negative); Protein,Urine 30 mg/dL (Negative); Specific Gravity,Urine 1.025 (1.000-1.035); Urine Blood Moderate ery/mcL (Negative); Urine RBC > 182 /hpf (0-1); Urine Squamous Epithelial Cell 2 /hpf (0-4); Urine WBC > 182 /hpf (0-4); Urobilinogen,Urine Normal
[2024-07-04 06:19] LABS: Basophils # (Auto) 0.05 K/mcL (0.00-0.30); Basophils % (Auto) 0.5 % (0.0-2.0); Eosinophils # (Auto) 0 K/mcL (0.00-0.70); Eosinophils % (Auto) 0 % (0.0-7.0); Hematocrit 30.3 % (34.1-44.9); Hemoglobin 9.3 g/dL (11.2-15.7); Lymphocytes # (Auto) 0.87 K/mcL (1.50-4.80); Lymphocytes % (Auto) 8.3 % (15.5-49.0); Mean Cell Volume 94.4 fL (80.0-100.0); Mean Corpuscular HGB Conc 30.7 g/dL (31.0-36.0); Mean Platelet Volume 9.9 fL (8.8-12.5); Monocytes # (Auto) 2.43 K/mcL (0.10-0.90); Monocytes % (Auto) 23.1 % (1.0-12.0); Neutrophils % (Auto) 60.4 % (38.0-78.0); Platelet Count 149 K/mcL (140-440); RBC 3.21 M/mcL (3.59-5.38); Red Cell Distribution Width 17.2 % (11.5-14.5); WBC 10.5 K/mcL (4.5-11.0)
[2024-07-04 06:29] LABS: ALT/SGPT 6 U/L (<40); AST/SGOT 16 U/L (<32); Albumin 3.7 gm/dL (3.2-5.2); Albumin/Globulin Ratio 1.8 (1.0-2.3); Alkaline Phosphatase 78 U/L (39-117); Bilirubin,Direct 0.3 mg/dL (<0.3); Bilirubin,Total 0.7 mg/dL (0.1-1.0); Blood Urea Nitrogen 8 mg/dL (8-23); Calcium 9.1 mg/dL (8.6-10.4); Carbon Dioxide 39 mmol/L (22-30); Chloride 91 mmol/L (96-108); Globulin 2.1 gm/dL (2.2-3.7); Glomerular Filtration Rate 87; Glucose 126 mg/dL (70-105); Lactate Dehydrogenase 174 U/L (135-225); Phosphorous 3.6 mg/dL (2.5-4.5); Sodium 135 mmol/L (133-145); Triglycerides 103 mg/dL (<150); Uric Acid 2.7 mg/dL (2.5-8.0)
[2024-07-04] MEDS: LEVOTHYROXINE 150 MCG TABLET PO SCH (07:12)
[2024-07-04] MEDS: POLYETHYLENE GLYCOL 3350 17 GM PACKET PO PRN (08:31)
[2024-07-04] MEDS ORDERED: CLOPIDOGREL 75 MG TABLET PO SCH (09:00)
[2024-07-04] MEDS ORDERED: LOSARTAN 25 MG TABLET PO SCH (09:00)
[2024-07-04] MEDS: NALOXONE HCL 4 MG NASAL (PP) NS ONE (09:21)
[2024-07-04] MEDS: BISACODYL 10 MG SUPP.RECT PR PRN (10:51)
[2024-07-04] MEDS: LOSARTAN 25 MG TABLET PO SCH (10:57)
[2024-07-04] MEDS: DOCUSATE SODIUM 100 MG CAPSULE PO PRN (10:58)
[2024-07-04] MEDS: LIDOCAINE 4% TOP PATCH TOPICAL SCH (10:59)
[2024-07-04] MEDS: traMADol 50 MG TABLET PO PRN (11:06)
[2024-07-05] MEDS: LACTULOSE 20 GM/30 ML ORAL.SOL PO PRN (03:55)
[2024-07-05 06:44] LABS: Basophils # (Auto) 0.05 K/mcL (0.00-0.30); Basophils % (Auto) 0.4 % (0.0-2.0); Eosinophils # (Auto) 0.01 K/mcL (0.00-0.70); Eosinophils % (Auto) 0.1 % (0.0-7.0); Hematocrit 28.2 % (34.1-44.9); Hemoglobin 8.7 g/dL (11.2-15.7); Lymphocytes # (Auto) 0.93 K/mcL (1.50-4.80); Lymphocytes % (Auto) 8.4 % (15.5-49.0); Mean Cell Volume 94.6 fL (80.0-100.0); Mean Corpuscular HGB Conc 30.9 g/dL (31.0-36.0); Mean Platelet Volume 9.9 fL (8.8-12.5); Monocytes # (Auto) 3.02 K/mcL (0.10-0.90); Monocytes % (Auto) 27.1 % (1.0-12.0); Neutrophils % (Auto) 57.6 % (38.0-78.0); Platelet Count 134 K/mcL (140-440); RBC 2.98 M/mcL (3.59-5.38); Red Cell Distribution Width 17.1 % (11.5-14.5); WBC 11.1 K/mcL (4.5-11.0)
[2024-07-05 06:59] LABS: ALT/SGPT < 5 U/L (<40); AST/SGOT 18 U/L (<32); Albumin 3.6 gm/dL (3.2-5.2); Albumin/Globulin Ratio 1.7 (1.0-2.3); Alkaline Phosphatase 76 U/L (39-117); Bilirubin,Direct 0.3 mg/dL (<0.3); Bilirubin,Total 0.6 mg/dL (0.1-1.0); Blood Urea Nitrogen 11 mg/dL (8-23); Calcium 9.4 mg/dL (8.6-10.4); Carbon Dioxide 40 mmol/L (22-30); Chloride 91 mmol/L (96-108); Globulin 2.1 gm/dL (2.2-3.7); Glomerular Filtration Rate 87; Glucose 120 mg/dL (70-105); Lactate Dehydrogenase 295 U/L (135-225); Phosphorous 3.4 mg/dL (2.5-4.5); Potassium 4.4 mmol/L (3.3-5.1); Sodium 135 mmol/L (133-145); Triglycerides 101 mg/dL (<150); Uric Acid 2.9 mg/dL (2.5-8.0)
[2024-07-05] MEDS: FLEETS ADULT 1 DOSE ENEMA PR PRN (08:56)
[2024-07-05 14:19] LABS: ABG Methemoglobin 0.1 % (0.4-1.5); Total Hemoglobin 10.5 gm/Dl (12.0-15.0); VBG Base Excess 13 (-2-3); VBG HCO3 36.5 mmol/L (24.0-28.0); VBG Oxygen Saturation 87.4 % (40.0-70.0); VBG PCO2 42.1 mmHg (41.0-51.0); VBG PH 7.56 U (7.32-7.42); VBG PO2 85.4 mmHg (25.0-40.0); VBG Total CO2 37.8 mmol/L (25.0-29.0)
[2024-07-05] MEDS ORDERED: IOPAMIDOL 100 ML BOTTLE IV ONE (14:32)
[2024-07-06 07:15] LABS: Basophils # (Auto) 0.08 K/mcL (0.00-0.30); Basophils % (Auto) 0.7 % (0.0-2.0); Eosinophils # (Auto) 0 K/mcL (0.00-0.70); Eosinophils % (Auto) 0 % (0.0-7.0); Hematocrit 28.8 % (34.1-44.9); Hemoglobin 9.1 g/dL (11.2-15.7); Lymphocytes # (Auto) 0.94 K/mcL (1.50-4.80); Mean Cell Volume 94.1 fL (80.0-100.0); Mean Corpuscular HGB Conc 31.6 g/dL (31.0-36.0); Mean Platelet Volume 10.1 fL (8.8-12.5); Monocytes # (Auto) 3.05 K/mcL (0.10-0.90); Monocytes % (Auto) 25.9 % (1.0-12.0); Neutrophils % (Auto) 59.4 % (38.0-78.0); Platelet Count 132 K/mcL (140-440); RBC 3.06 M/mcL (3.59-5.38); Red Cell Distribution Width 17.2 % (11.5-14.5); WBC 11.8 K/mcL (4.5-11.0)
[2024-07-06 07:15] LABS: ALT/SGPT 6 U/L (<40); AST/SGOT 19 U/L (<32); Albumin 3.4 gm/dL (3.2-5.2); Albumin/Globulin Ratio 1.4 (1.0-2.3); Alkaline Phosphatase 77 U/L (39-117); Bilirubin,Direct 0.4 mg/dL (<0.3); Blood Urea Nitrogen 10 mg/dL (8-23); Calcium 9.3 mg/dL (8.6-10.4); Carbon Dioxide 40 mmol/L (22-30); Chloride 89 mmol/L (96-108); Globulin 2.4 gm/dL (2.2-3.7); Glomerular Filtration Rate 94; Glucose 113 mg/dL (70-105); Lactate Dehydrogenase 214 U/L (135-225); Phosphorous 2.4 mg/dL (2.5-4.5); Potassium 4.3 mmol/L (3.3-5.1); Sodium 134 mmol/L (133-145); Triglycerides 99 mg/dL (<150); Uric Acid 2.6 mg/dL (2.5-8.0)
[2024-07-06] MEDS: FUROSEMIDE 40 MG/4 ML VIAL IV ONE (11:22)
== END 2024-07-06 14:15 | DRG 563 ==
LOC: MEDSUR 14:21 → ED 14:21 → MEDSUR 20:55
PROVIDERS: ADMIT Student in an Organized Health Care Education/Training Program; ATTEND Internal Medicine

== ENCOUNTER 2024-07-10 07:42 | Inpatient (IN) ==
[2024-07-10] MEDS: 0.9 % SODIUM CHLORIDE 250 ML IV ONE (08:15)
[2024-07-10 08:37] LABS: Basophils # (Auto) 0.03 K/mcL (0.00-0.30); Basophils % (Auto) 0.3 % (0.0-2.0); Eosinophils # (Auto) 0 K/mcL (0.00-0.70); Eosinophils % (Auto) 0 % (0.0-7.0); Hematocrit 31.1 % (34.1-44.9); Hemoglobin 9.1 g/dL (11.2-15.7); Lymphocytes # (Auto) 0.62 K/mcL (1.50-4.80); Lymphocytes % (Auto) 5.6 % (15.5-49.0); Mean Cell Volume 99.7 fL (80.0-100.0); Mean Corpuscular HGB Conc 29.3 g/dL (31.0-36.0); Mean Platelet Volume 9.7 fL (8.8-12.5); Monocytes # (Auto) 2.54 K/mcL (0.10-0.90); Monocytes % (Auto) 22.7 % (1.0-12.0); Neutrophils % (Auto) 61.1 % (38.0-78.0); Platelet Count 196 K/mcL (140-440); RBC 3.12 M/mcL (3.59-5.38); Red Cell Distribution Width 19.2 % (11.5-14.5); WBC 11.2 K/mcL (4.5-11.0)
[2024-07-10 09:11] LABS: ALT/SGPT 8 U/L (<40); AST/SGOT 30 U/L (<32); Albumin 3.6 gm/dL (3.2-5.2); Albumin/Globulin Ratio 1.4 (1.0-2.3); Alkaline Phosphatase 85 U/L (39-117); Bilirubin,Total 0.9 mg/dL (0.1-1.0); Blood Urea Nitrogen 28 mg/dL (8-23); Calcium 9.2 mg/dL (8.6-10.4); Carbon Dioxide 43 mmol/L (22-30); Chloride 88 mmol/L (96-108); Globulin 2.5 gm/dL (2.2-3.7); Glomerular Filtration Rate 29; Glucose 103 mg/dL (70-105); Potassium 5.3 mmol/L (3.3-5.1); Sodium 137 mmol/L (133-145)
[2024-07-10] MEDS: PIPERACILLIN SODIUM/TAZOBACTAM 4.5 GM in DEXTROSE 5% IN WATER 50 ML IV ONE (09:16)
[2024-07-10] MEDS: FUROSEMIDE 100 MG/10 ML VIAL IV ONE (09:24)
[2024-07-10] MEDS: morphine 2 MG/ML VIAL IV ONE (09:24)
[2024-07-10] MEDS: VANCOMYCIN PER PHARMACY IV ONE (09:40)
[2024-07-10] MEDS: fentaNYL 100 MCG/2 ML VIAL IV ONE ×2 (09:51→10:50)
[2024-07-10] MEDS: VANCOMYCIN 1,500 MG in 0.9 % SODIUM CHLORIDE 500 ML IV ONE (10:21)
[2024-07-10 10:59] LABS: C-Reactive Protein < 0.30 mg/dL (0.03-0.80)
[2024-07-10 11:11] LABS: Appearance,Urine Turbid (Clear); Bacteria,Urine Mod /hpf (0); Bilirubin,Urine Small mg/dL (Negative); Color,Urine Yellow; Culture Indicated,Urine Yes; Glucose,Urine (UA) Negative (Negative); Ketones,Urine Negative (Negative); Leukocyte Esterase,Urine Small /uL (Negative); Nitrate,Urine Positive (Negative); PH,Urine 5.5 (5.0-9.0); Protein,Urine 100 mg/dL (Negative); Specific Gravity,Urine 1.025 (1.000-1.035); Urine Blood Large ery/mcL (Negative); Urine RBC 0 /hpf (0-3); Urine Squamous Epithelial Cell 0 /hpf (0-4); Urine WBC 24 /hpf (0-4)
[2024-07-10] MEDS ORDERED: ACETAMINOPHEN 160 MG/5 ML ORAL.SOL PO PRN (11:52)
[2024-07-10] MEDS ORDERED: METOCLOPRAMIDE 10 MG/2 ML VIAL IV PRN (11:52)
[2024-07-10] MEDS ORDERED: POTASSIUM CHLORIDE 40 MEQ in DEXTROSE 5% IN WATER 500 ML IV PRN (11:52)
[2024-07-10] MEDS ORDERED: POTASSIUM CHLORIDE 20 MEQ TABLET PO PRN (11:52)
[2024-07-10] MEDS ORDERED: SENNOSIDES 1 TABLET PO PRN (11:52)
[2024-07-10] MEDS ORDERED: MAGNESIUM SULFATE 2 GM/50 ML BAG IV PRN (11:52)
[2024-07-10] MEDS ORDERED: POLYETHYLENE GLYCOL 3350 17 GM PACKET PO PRN (11:52)
[2024-07-10] MEDS ORDERED: METOPROLOL TARTRATE 5 MG/5 ML VIAL IV PRN (11:52)
[2024-07-10] MEDS: CEFEPIME 1 GM VIAL IV SCH (12:36)
[2024-07-10] MEDS: DEXAMETHASONE 10 MG/ML VIAL IV SCH (12:37)
[2024-07-10] MEDS: morphine 2 MG/ML VIAL IV PRN (12:37)
[2024-07-10] MEDS: REMDESIVIR 200 MG in 0.9 % SODIUM CHLORIDE 250 ML IV ONE (13:35)
[2024-07-10] MEDS: IPRATROPIUM/ALBUTEROL 3 ML AMPUL.NEB NEB PRN (14:15)
[2024-07-10] MEDS: fentaNYL 100 MCG/2 ML VIAL IV PRN (14:29)
[2024-07-10] MEDS: acetaZOLAMIDE SOD 500 MG VIAL IV SCH (14:29)
[2024-07-10 17:55] LABS: Blood Urea Nitrogen 34 mg/dL (8-23); Calcium 9.1 mg/dL (8.6-10.4); Carbon Dioxide 41 mmol/L (22-30); Chloride 89 mmol/L (96-108); Glomerular Filtration Rate 29; Glucose 115 mg/dL (70-105); Sodium 137 mmol/L (133-145)
[2024-07-10] MEDS: DOCUSATE SODIUM 100 MG CAPSULE PO SCH (21:31)
[2024-07-10] MEDS: ACETAMINOPHEN 650 MG/65 ML BAG IV PRN (21:31)
[2024-07-10] MEDS ORDERED: LABETALOL HCL 20 MG/4 ML VIAL IV PRN (22:05)
[2024-07-11 06:44] LABS: ALT/SGPT 10 U/L (<40); AST/SGOT 47 U/L (<32); Albumin 3.4 gm/dL (3.2-5.2); Albumin/Globulin Ratio 1.6 (1.0-2.3); Alkaline Phosphatase 66 U/L (39-117); Bilirubin,Direct 0.3 mg/dL (<0.3); Bilirubin,Total 0.6 mg/dL (0.1-1.0); Blood Urea Nitrogen 39 mg/dL (8-23); Calcium 9.1 mg/dL (8.6-10.4); Carbon Dioxide 40 mmol/L (22-30); Chloride 91 mmol/L (96-108); Globulin 2.1 gm/dL (2.2-3.7); Glomerular Filtration Rate 37; Glucose 89 mg/dL (70-105); Lactate Dehydrogenase 195 U/L (135-225); Phosphorous 3.8 mg/dL (2.5-4.5); Potassium 4.5 mmol/L (3.3-5.1); Sodium 140 mmol/L (133-145); Triglycerides 79 mg/dL (<150)
[2024-07-11 06:54] LABS: Basophils # (Auto) 0.03 K/mcL (0.00-0.30); Basophils % (Auto) 0.3 % (0.0-2.0); Eosinophils # (Auto) 0 K/mcL (0.00-0.70); Eosinophils % (Auto) 0 % (0.0-7.0); Hematocrit 25.9 % (34.1-44.9); Hemoglobin 7.7 g/dL (11.2-15.7); Lymphocytes # (Auto) 0.48 K/mcL (1.50-4.80); Lymphocytes % (Auto) 5.5 % (15.5-49.0); Mean Cell Volume 97.7 fL (80.0-100.0); Mean Corpuscular HGB Conc 29.7 g/dL (31.0-36.0); Mean Platelet Volume 9.8 fL (8.8-12.5); Monocytes # (Auto) 1.98 K/mcL (0.10-0.90); Monocytes % (Auto) 22.6 % (1.0-12.0); Neutrophils % (Auto) 66.9 % (38.0-78.0); Platelet Count 143 K/mcL (140-440); RBC 2.65 M/mcL (3.59-5.38); Red Cell Distribution Width 18.6 % (11.5-14.5); WBC 8.8 K/mcL (4.5-11.0)
[2024-07-11] MEDS: ENOXAPARIN 40 MG/0.4 ML SYRINGE SQ SCH (08:42)
[2024-07-11] MEDS: ATORVASTATIN 40 MG TABLET PO SCH (08:43)
[2024-07-11] MEDS: ASPIRIN 81 MG TAB.CHEW PO SCH (08:43)
[2024-07-11] MEDS: LEVOTHYROXINE 150 MCG TABLET PO SCH (08:44)
[2024-07-11] MEDS: METOPROLOL TARTRATE 25 MG TABLET PO SCH (08:44)
[2024-07-11] MEDS: METOLAZONE 2.5 MG TABLET PO ONE (08:45)
[2024-07-11] MEDS ORDERED: VANCOMYCIN PER PHARMACY IV SCH (08:49)
[2024-07-11] MEDS: acetaZOLAMIDE SOD 500 MG VIAL IV ONE (09:02)
[2024-07-11] MEDS: REMDESIVIR 100 MG in 0.9 % SODIUM CHLORIDE 250 ML IV SCH (09:23)
[2024-07-11] MEDS: VANCOMYCIN 1,000 MG in 0.9 % SODIUM CHLORIDE 250 ML IV SCH (09:57)
[2024-07-11 10:21] LABS: Hematocrit 28.2 % (34.1-44.9); Hemoglobin 8.4 g/dL (11.2-15.7)
[2024-07-11] MEDS: LIDOCAINE 4% TOP PATCH TOPICAL SCH (10:24)
[2024-07-11] MEDS: FUROSEMIDE 40 MG/4 ML VIAL IV SCH (20:40)
[2024-07-12 07:08] LABS: ALT/SGPT 11 U/L (<40); AST/SGOT 41 U/L (<32); Albumin 3.4 gm/dL (3.2-5.2); Albumin/Globulin Ratio 1.6 (1.0-2.3); Alkaline Phosphatase 65 U/L (39-117); Bilirubin,Direct 0.4 mg/dL (<0.3); Bilirubin,Total 0.7 mg/dL (0.1-1.0); Blood Urea Nitrogen 39 mg/dL (8-23); Calcium 9.5 mg/dL (8.6-10.4); Carbon Dioxide 40 mmol/L (22-30); Chloride 92 mmol/L (96-108); Globulin 2.1 gm/dL (2.2-3.7); Glomerular Filtration Rate 66; Glucose 79 mg/dL (70-105); Lactate Dehydrogenase 185 U/L (135-225); Phosphorous 2.8 mg/dL (2.5-4.5); Potassium 3.7 mmol/L (3.3-5.1); Sodium 141 mmol/L (133-145); Triglycerides 85 mg/dL (<150); Uric Acid 6.2 mg/dL (2.5-8.0)
[2024-07-12 07:19] LABS: Basophils # (Auto) 0.03 K/mcL (0.00-0.30); Basophils % (Auto) 0.5 % (0.0-2.0); Eosinophils # (Auto) 0 K/mcL (0.00-0.70); Eosinophils % (Auto) 0 % (0.0-7.0); Hematocrit 26.5 % (34.1-44.9); Hemoglobin 7.9 g/dL (11.2-15.7); Lymphocytes # (Auto) 0.51 K/mcL (1.50-4.80); Lymphocytes % (Auto) 8.1 % (15.5-49.0); Mean Cell Volume 98.5 fL (80.0-100.0); Mean Corpuscular HGB Conc 29.8 g/dL (31.0-36.0); Mean Platelet Volume 9.8 fL (8.8-12.5); Monocytes # (Auto) 1.68 K/mcL (0.10-0.90); Monocytes % (Auto) 26.8 % (1.0-12.0); Neutrophils % (Auto) 60.3 % (38.0-78.0); Platelet Count 141 K/mcL (140-440); RBC 2.69 M/mcL (3.59-5.38); Red Cell Distribution Width 18.2 % (11.5-14.5); WBC 6.3 K/mcL (4.5-11.0)
[2024-07-12] MEDS: acetaZOLAMIDE SOD 500 MG VIAL IV ONE (08:38)
[2024-07-12] MEDS: HYDROcodone/APAP 10/325MG TABLET PO PRN (09:04)
[2024-07-12] MEDS: SPIRONOLACTONE 25 MG TABLET PO SCH (09:04)
[2024-07-12] MEDS: FUROSEMIDE 250 MG in 0.9 % SODIUM CHLORIDE 225 ML IV SCH (09:23)
[2024-07-12] MEDS: CEFEPIME 1 GM VIAL IV SCH (15:18)
[2024-07-13] MEDS: 0.9 % SODIUM CHLORIDE 250 ML IV SCH (05:27)
[2024-07-13 06:37] LABS: Hematocrit 25.5 % (34.1-44.9)
[2024-07-13 07:16] LABS: ALT/SGPT 11 U/L (<40); AST/SGOT 37 U/L (<32); Albumin 3.6 gm/dL (3.2-5.2); Albumin/Globulin Ratio 1.9 (1.0-2.3); Alkaline Phosphatase 63 U/L (39-117); Bilirubin,Direct 0.4 mg/dL (<0.3); Bilirubin,Total 0.9 mg/dL (0.1-1.0); Blood Urea Nitrogen 36 mg/dL (8-23); Calcium 9.6 mg/dL (8.6-10.4); Carbon Dioxide 46 mmol/L (22-30); Chloride 89 mmol/L (96-108); Globulin 1.9 gm/dL (2.2-3.7); Glomerular Filtration Rate 82; Glucose 107 mg/dL (70-105); Lactate Dehydrogenase 208 U/L (135-225); Phosphorous 2.3 mg/dL (2.5-4.5); Potassium 3.1 mmol/L (3.3-5.1); Sodium 141 mmol/L (133-145); Triglycerides 80 mg/dL (<150); Uric Acid 6.2 mg/dL (2.5-8.0)
[2024-07-13] MEDS: POTASSIUM CHLORIDE 20 MEQ TABLET PO PRN (08:50)
[2024-07-13] MEDS: acetaZOLAMIDE SOD 500 MG VIAL IV ONE (08:51)
[2024-07-13] MEDS: ONDANSETRON 4 MG/2 ML VIAL IV PRN (08:52)
[2024-07-13 16:19] LABS: Albumin 3.7 gm/dL (3.2-5.2); Calcium 9.5 mg/dL (8.6-10.4); Phosphorous 3.1 mg/dL (2.5-4.5); Potassium 3.7 mmol/L (3.3-5.1)
[2024-07-14 07:36] LABS: ALT/SGPT 11 U/L (<40); AST/SGOT 28 U/L (<32); Albumin 3.5 gm/dL (3.2-5.2); Albumin/Globulin Ratio 1.8 (1.0-2.3); Alkaline Phosphatase 61 U/L (39-117); Bilirubin,Direct 0.4 mg/dL (<0.3); Bilirubin,Total 0.9 mg/dL (0.1-1.0); Blood Urea Nitrogen 36 mg/dL (8-23); Calcium 9.4 mg/dL (8.6-10.4); Carbon Dioxide 45 mmol/L (22-30); Chloride 90 mmol/L (96-108); Glomerular Filtration Rate 82; Glucose 120 mg/dL (70-105); Lactate Dehydrogenase 252 U/L (135-225); Phosphorous 3.3 mg/dL (2.5-4.5); Potassium 3.7 mmol/L (3.3-5.1); Sodium 140 mmol/L (133-145); Triglycerides 60 mg/dL (<150); Uric Acid 5.4 mg/dL (2.5-8.0)
[2024-07-14] MEDS: AMPICILLIN SODIUM 2 GM in 0.9 % SODIUM CHLORIDE 100 ML IV SCH (08:21)
[2024-07-14] MEDS: AMPICILLIN SODIUM 2 GM VIAL IV SCH (09:20)
[2024-07-14] MEDS: CIPROFLOXACIN 400 MG/200 ML BAG IV SCH (11:19)
[2024-07-14] MEDS ORDERED: ALBUTEROL SULFATE 2.5 MG/3 ML NEBULIZER NEB PRN (15:43)
[2024-07-14] MEDS: fentaNYL 100 MCG/2 ML VIAL IV PRN (16:22)
[2024-07-14] MEDS: LORazepam 2 MG/ML VIAL IV PRN (16:22)
[2024-07-14] MEDS: 0.9 % SODIUM CHLORIDE 10 ML SYRINGE IV SCH (22:25)
[2024-07-15] MEDS: ONDANSETRON 4 MG/2 ML VIAL IV PRN (07:19)
== END 2024-07-16 14:30 | disposition expired | DRG 291 ==
LOC: ED 07:42 → ICU 11:37
PROVIDERS: ADMIT Internal Medicine; ATTEND Internal Medicine